=== PATIENT | female | born 1950 | race Caucasian/White ===

== ENCOUNTER 2017-06-19 11:17 | Inpatient (IN) | payer MEDICARE, BC ==
[~2017-06-19] VITALS: Ht 177.8 cm; Wt 91.1 kg
[~2017-06-19 11:17] MED LIST: ASPI-664 PO; BISA5TAB6 PO; GABA300C16 PO; LOSA100T7 PO; VIT1TABL PO
[2017-06-19] MEDS ORDERED: HYDROmorphONE 1 MG/ML SYG IV STA ×2 (11:19→12:53)
[2017-06-19] MEDS ORDERED: ONDANSETRON 4 MG INJ IV STA (11:19)
[2017-06-19 11:23] VITALS: Ht 177.8 cm; Wt 91.1 kg
--- NOTE | 2017-06-19 11:53 | ERA ---
ER Documentation Chief Complaint Date/Time DATE: 06/19/17 TIME: 11:51 Chief Complaint BIB RA FOR EVAL OF BILAT ELBOW/ARM PAIN. S/P FALL HPI This is a 67-year-old Sami female presents with family member who is interpreting. The patient just prior to arrival had a mechanical fall with outstretched hand. She tripped on a hose. She did not hit her head or lose consciousness. The patient has deformities and pain to bilateral elbows. The patient describes significant pain that is constant and certainly worse with movement. EMS was unable to obtain an IV. She denies any prodrome of chest pain or shortness of breath. ROS All systems reviewed and are negative except as per history of present illness. Medications Home Meds Active Scripts Aspirin* (Aspirin* EC) 81 Mg Tabec, 81 MG PO DAILY for 90 Days, TAB Prov:PRATEEK POWELL MD 03/15/16 Reported Medications Triamcinolone Acetonide* (Kenalog*) 0.1%-15GM Cr, 1 APPLIC TOP TID, #1 TUB 06/19/17 Ibuprofen* (Motrin*) 800 Mg Tab, 800 MG PO BID Y for PAIN, TAB 06/19/17 Amlodipine Besylate* (Amlodipine Besylate*) 10 Mg Tablet, 10 MG PO DAILY, #30 TAB 06/19/17 Clonidine Hcl* (Clonidine Hcl*) 0.1 Mg Tab, 0.1 MG PO DAILY Y for ELEVATED BLOOD PRESSURE, TAB 06/19/17 Escitalopram Oxalate* (Lexapro*) 10 Mg Tablet, 10 MG PO DAILY, #30 TAB 06/19/17 Loratadine* (Loratadine*) 10 Mg Tablet, 10 MG PO DAILY, #30 TAB 06/19/17 Esomeprazole Mag Trihydrate (Nexium) 40 Mg Capsule.dr, 40 MG PO DAILY, #30 CAP 06/19/17 Duloxetine Hcl* (Duloxetine Hcl*) 60 Mg Capsule.dr, 60 MG PO DAILY, #30 CAP 06/19/17 Gabapentin* (Gabapentin*) 300 Mg Capsule, 300 MG PO TID, #90 CAP 03/13/16 Discontinued Reported Medications Bisacodyl* (Bisacodyl*) 5 Mg Tablet.dr, 5 MG PO DAILY, TAB 03/13/16 Losartan Potassium* (Losartan Potassium*) 100 Mg Tablet, 100 MG PO DAILY, TAB 5/4/16 Discontinued Scripts Vit B12/Lmefolate Ca/Vit B6/B2 (METAFOLBIC TABLET) 1 Each Tablet, 1 EACH PO DAILY for 90 Days, TAB Prov:PRATEEK POWELL MD 03/15/16 Allergies Allergies: Coded Allergies: No Known Allergy (Unverified , 06/19/17) PMhx/Soc History of Surgery: Yes (Gallbladder surgery) Anesthesia Reaction: No Hx Neurological Disorder: No Hx Respiratory Disorders: No Hx Cardiac Disorders: Yes (HTN) Hx Psychiatric Problems: No Hx Miscellaneous Medical Probl: No Hx Alcohol Use: No Hx Substance Use: No Hx Tobacco Use: No FmHx Family History: No diabetes Physical Exam Vitals Vital Signs Date Time Temp Pulse Resp B/P Pulse Ox O2 Delivery O2 Flow Rate FiO2 06/19/17 13:18 96 16 171/121 100 Non Rebreather 06/19/17 11:23 97.3 69 19 168/117 100 06/19/17 11:19 98.4 88 22 168/117 100 Room Air Physical Exam Airway is intact Bilateral breath sounds Strong distal pulses No obvious deficits General: In pain and very uncomfortable Head: Normocephalic, atraumatic Eyes: Pupils equally reactive, EOM intact ENT: Moist mucous membranes Neck: Supple, no lymphadenopathy, No midline tenderness, deformities, step-offs to the cervical spine, full active and passive range of motion without midline pain. Respiratory: Lungs clear bilaterally, no distress, no chest wall tenderness, no crepitus Cardiovascular: RRR, no murmurs, rubs, or gallops Abdominal: Soft, non-tender, non-distended, no peritoneal signs, pelvis is stable : Deferred MSK: Limited movement of bilateral upper extremities with obvious deformity. Right upper extremity with deformity noted to the elbow. 2+ radial and ulnar pulses, soft compartments. Left upper extremity with obvious deformity possible dislocation of the left elbow. Soft compartments, 2+ radial ulnar pulses. Sensation is intact distally to bilateral upper extremities., no midline tenderness deformities or step-offs to the thoracolumbar spine Neurologic: Alert and oriented, normal speech, no focal weakness, no cerebellar signs Skin: No ecchymoses or bruising to the chest or abdomen Psych: Normal mood Result Diagram: 06/19/17 1119 06/19/17 1119 Results 24 hrs Laboratory Tests Test 06/19/17 11:19 White Blood Count 4.710^3/ul Red Blood Count 4.3810^6/ul Hemoglobin 11.8g/dl Hematocrit 34.9% Mean Corpuscular Volume 79.7fl Mean Corpuscular Hemoglobin 26.9pg Mean Corpuscular Hemoglobin Concent 33.8g/dl Red Cell Distribution Width 14.4% Platelet Count 28412^3/UL Mean Platelet Volume 11.4fl Neutrophils % 57.8% Lymphocytes % 31.8% Monocytes % 6.8% Eosinophils % 2.8% Basophils % 0.6% Nucleated Red Blood Cells % 0.0/100WBC Neutrophils # 2.710^3/ul Lymphocytes # 1.510^3/ul Monocytes # 0.310^3/ul Eosinophils # 0.110^3/ul Basophils # 0.010^3/ul Nucleated Red Blood Cells # 0.010^3/ul Prothrombin Time 12.4Sec Prothrombin Time Ratio 1.0 INR International Normalized Ratio 0.92 Activated Partial Thromboplast Time 31.7Sec Sodium Level 143mmol/L Potassium Level 4.4mmol/L Chloride Level 104mmol/L Carbon Dioxide Level 20mmol/L Anion Gap 23 Blood Urea Nitrogen 13mg/dl Creatinine 0.73mg/dl Glucose Level 121mg/dl Calcium Level 9.9mg/dl Current Medications Medications (Trade) Dose Ordered Sig/[place] Route PRN Reason Start Time Stop Time Status Last Admin Dose Admin Hydromorphone HCl (Dilaudid) 1 mg ONCE STAT IV 06/19/17 11:19 06/19/17 11:21 DC 06/19/17 11:42 Ondansetron HCl (Zofran Inj) 4 mg ONCE STAT IV 06/19/17 11:19 06/19/17 11:22 DC 06/19/17 11:42 Hydromorphone HCl (Dilaudid) 1 mg ONCE STAT IV 06/19/17 12:53 06/19/17 12:54 DC 06/19/17 12:56 Ketamine HCl (Ketalar) 50 mg ONCE STAT IV 06/19/17 12:59 06/19/17 13:02 DC 06/19/17 13:08 Propofol (Diprivan) 50 mg ONCE STAT IV 06/19/17 12:59 06/19/17 13:02 DC Ondansetron HCl (Zofran Inj) 4 mg BRIDGE ORDER PRN IV NAUSEA AND/OR VOMITING 06/19/17 14:30 06/20/17 14:29 Acetaminophen (Tylenol Tab) 650 mg ER BRIDGE PRN PO MILD PAIN/FEVER 06/19/17 14:30 06/20/17 14:29 Procedures/MDM EKG, MONITORS, & DIAGNOSTIC IMAGING: EKG: I reviewed and interpreted a 12-lead EKG. Rhythm: Normal sinus rhythm Ectopy: None Intervals: No abnormalities ST segments: No elevations or depressions T waves: No contiguous inversions Chest x-ray: I reviewed and interpreted a 1 view of the chest Mediastinum: No enlargement Cardiac silhouette: No cardiomegaly Airspace: Clear lung hunter bilaterally without evidence of pneumothorax Bones: No evidence of fracture X-ray right elbow: I reviewed and interpreted multiple views of the x-ray Bones: Distal fragment posterior dislocation of the right elbow joint with concerning abnormality that may suggest supracondylar fracture Soft tissue: No evidence of foreign body X-ray left elbow: I reviewed and interpreted multiple views of the x-ray Bones: Distal fragment posterior dislocation of the left elbow joint with possible radial head fracture Soft tissue: No evidence of foreign body X-ray right elbow: Postreduction I reviewed and interpreted multiple views of the x-ray Bones: Appropriate reduction of elbow dislocation with good alignment Soft tissue: No evidence of foreign body X-ray left elbow: Postreduction I reviewed and interpreted multiple views of the x-ray Bones: Appropriate reduction of elbow dislocation with radial head fracture Soft tissue: No evidence of foreign body PROCEDURES; Splint Application Note: Left upper extremity Splint type: Fabricated posterior mold and sling Extremity: Left upper extremity Indication: Elbow dislocation and fracture The patient was consented at bedside prior to splint application and states understanding of risks, benefits, and alternatives. The patient was neurovascularly intact prior to and status post application of the splint. The patient tolerated the procedure well and there were no complications. Splint Application Note: Right upper extremity Splint type: Posterior mold and sling Extremity: Right upper extremity Indication: Elbow dislocation and fracture The patient was consented at bedside prior to splint application and states understanding of risks, benefits, and alternatives. The patient was neurovascularly intact prior to and status post application of the splint. The patient tolerated the procedure well and there were no complications. Procedural sedation note: The patient and/or family member was consented prior to procedure and understands the risks, benefits, alternatives. A document was signed and placed in the chart. ASA class: 2 Mallampati Score: 2 N.p.o. status: Greater than 6 hours Indication: Bilateral elbow dislocation Medications: Ketamine 50 mg, Propofol 50 mg Time out was performed. Emergency airway equipment was placed to the patient's bedside. The patient was placed on supplemental oxygen. Respiratory therapy was available. The patient was placed on a tie inspector. The patient tolerated sedation well with no significant adverse events and no significant desaturations. However, the patient did have a very short and transient episode of trismus that led to slight decreased respiratory effort requiring bag valve mask for less than 2 minutes again with no desaturations or complications. The patient recovered without incident. I spent greater than 15 minutes of bedside time with this patient during sedation. Status post sedation the patient was arousable, protecting their airway, and well appearing. Closed reduction: Performed by Dr. Rothman The patient and/or family members were verbally consented for the procedure understanding the risks, benefits, alternatives. The document was signed and placed in the chart. Time out was performed. Indication: Elbow dislocation Location: Right upper extremity Technique: Traction and countertraction using fulcrum technique Neurovascular exam: The patient was neurovascularly intact distal to the injury both prior to and status post closed reduction The patient had improvement in anatomic alignment, tolerated the procedure well without complications. Closed reduction: Performed by myself The patient and/or family members were verbally consented for the procedure understanding the risks, benefits, alternatives. The document was signed and placed in the chart. Time out was performed. Indication: Elbow dislocation Location: Left upper extremity Technique: Traction and countertraction using fulcrum technique Neurovascular exam: The patient was neurovascularly intact distal to the injury both prior to and status post closed reduction The patient had improvement in anatomic alignment, tolerated the procedure well without complications. LAB INTERPRETATION: No acute process MEDICAL DECISION MAKING: The patient presents with bilateral elbow deformity is concerning for fracture, dislocation of bilateral elbows. Soft compartments, no evidence of compartment syndrome. Neurovascularly intact. Diagnostic imaging necessary. Patient may require ORIF versus procedural sedation with close fixation in the ER. Determination based on x-ray imaging. The patient will benefit from pain control, preoperative labs and imaging. No head trauma or loss of consciousness. The patient does not meet high-risk criteria and based on NEXUS cervical spine criteria there is no indication for cervical spine imaging at this time. No indication for CT imaging of the brain. ER COURSE: The patient received multiple doses of pain medication. X-ray imaging showed evidence of dislocation. There is subtle evidence of fractures. However this time the benefits of closed reduction in the emergency department outweighs the benefits. Closed reduction, immobilization and imaging as documented above. Of note, documents were signed by family member given that the patient could not write secondary to bilateral upper extremity involvement. The patient however provided verbal consent using an environmental remediation specialist. Given that the patient lives alone, the complexity of the patient's fracture dislocation and the fact that it is her bilateral upper extremities inpatient hospitalization is likely appropriate for orthopedic surgery consultation, PT OT and likely in home health care versus placement. I kept the patient and/or family informed of laboratory and diagnostic imaging results throughout the emergency room course. DISPOSITION PLAN: Medical surgical admission for management of bilateral elbow dislocation CONSULTATION: Accepting care team and consultations: I discussed the current laboratory data, diagnostic imaging and emergency care provided. Admitting team: Dr. Fofana Admitting team indication: Insurance directed Consulting services: Orthopedic surgeon Dr. Jo Departure Diagnosis: Primary Impression: Closed dislocation of left elbow Qualified Code: S53.105A - Closed dislocation of left elbow, initial encounter Additional Impressions: Closed dislocation of right elbow Qualified Code: S53.104A - Closed dislocation of right elbow, initial encounter Fracture of radial head, left, closed Qualified Code: S52.122A - Closed displaced fracture of head of left radius, initial encounter Condition: Stable INES BOURGEOIS MD Jun 19, 2017 11:53
[2017-06-19] MEDS ORDERED: ESOM40CA PO (11:54)
[2017-06-19] MEDS ORDERED: LORA10TA3 PO (11:54)
[2017-06-19] MEDS ORDERED: DULO60CA59 PO (11:54)
[2017-06-19] MEDS ORDERED: ESCI10TA PO (11:55)
[2017-06-19] MEDS ORDERED: CLON-379 PO (11:55)
[2017-06-19] MEDS ORDERED: AMLO-147 PO (11:55)
[2017-06-19] MEDS ORDERED: IBUP800T25 PO (11:56)
[2017-06-19] MEDS ORDERED: TRIA15CR55 TOP (11:57)
[2017-06-19 12:07] LABS: BASOPHILS % 0.6 % (0.0-2.0); EOSINOPHILS # 0.1 10^3/ul (0.0-0.5); EOSINOPHILS % 2.8 % (0.0-7.0); HEMATOCRIT 34.9 % (37.0-47.0); HEMOGLOBIN 11.8 g/dl (12.0-16.0); LYMPHOCYTES # 1.5 10^3/ul (0.8-2.9); LYMPHOCYTES % 31.8 % (15.0-51.0); MEAN CORPUSCULAR HEMOGLOBIN 26.9 pg (29.0-33.0); MEAN CORPUSCULAR HGB CONC 33.8 g/dl (32.0-37.0); MEAN CORPUSCULAR VOLUME 79.7 fl (82.0-101.0); MEAN PLATELET VOLUME 11.4 fl (7.4-10.4); MONOCYTE # 0.3 10^3/ul (0.3-0.9); MONOCYTES % 6.8 % (0.0-11.0); NEUTROPHIL # 2.7 10^3/ul (1.6-7.5); NEUTROPHILS % 57.8 % (39.0-77.0); PLATELET COUNT 172 10^3/UL (140-415); RED BLOOD COUNT 4.38 10^6/ul (4.20-5.40); RED CELL DISTRIBUTION WIDTH 14.4 % (11.5-14.5); WHITE BLOOD COUNT 4.7 10^3/ul (4.8-10.8)
[2017-06-19 12:22] LABS: INR 0.92; PROTIME 12.4 Sec (12.2-14.2)
[2017-06-19 12:23] LABS: PARTIAL THROMBOPLASTIN TIME 31.7 Sec (25.0-35.0)
[2017-06-19 12:26] LABS: CALCIUM 9.9 mg/dl (8.4-10.2); CREATININE 0.73 mg/dl (0.44-1.00); POTASSIUM 4.4 mmol/L (3.5-5.1)
[2017-06-19] MEDS ORDERED: PROPOFOL 200 MG INJ IV STA (12:59)
[2017-06-19] MEDS ORDERED: KETAMINE 500 MG INJ IV STA (12:59)
--- NOTE | 2017-06-19 13:20 | RADRPT ---
PROCEDURE: XR Chest. CLINICAL INDICATION: Abdominal pain. TECHNIQUE: Single frontal chest x-ray. COMPARISON: 03/13/2016 FINDINGS: The patient is rotated to the right, limiting the exam. Grossly, the lungs are clear. No focal opa cification is seen. No pneumothorax or pleural effusion is seen. The cardiomediastinal silhouette is unremarkable. The osseous structures are grossly unremarkable. IMPRESSION: No evidence of acute cardiopulmonary disease. RPTAT: JJ .Lco Sandoval MD, Date Time Electronically viewed and signed by .Loc Sandoval MD, on 06/19/2017 13:19 .A/
--- NOTE | 2017-06-19 13:27 | RADRPT ---
PROCEDURE: Elbow radiograph CLINICAL INDICATION: elbow pain s/p fall. COMPARISON: None relevant listed. TECHNIQUE: AP, lateral and oblique views of the left elbow. FINDINGS: The ulna and radius are posteriorly dislocated from the humerus by about 4.5 cm. There is a comminuted fracture of the radial head. Large joint effusion. IMPRESSION: Comminuted radial head fracture with widely dislocated elbow joint. RPTAT: PP Physician Vamsi Date Time Electronically viewed and signed by Gina Isidro Physician on 06/19/2017 13:27 LG/
--- NOTE | 2017-06-19 13:29 | RADRPT ---
PROCEDURE: Elbow radiograph CLINICAL INDICATION: elbow pain s/p fall. COMPARISON: None relevant listed. TECHNIQUE: Two views of the right elbow. FINDINGS: The radius and ulna are widely dislocated and rotated with respect to the humerus. No displaced fracture identified. IMPRESSION: The radius and ulna are widely dislocated from the humerus. RPTAT: PP Physician Vamsi Date Time Electronically viewed and signed by Gina Isidro Physician on 06/19/2017 13:29 LG/
--- NOTE | 2017-06-19 14:21 | RADRPT ---
PROCEDURE: XR Elbow. CLINICAL INDICATION: Left elbow pain TECHNIQUE: AP and lateral views of the left elbow are available for review COMPARISON: 06/19/2017 FINDINGS: There has been interval reduction of the radiocapitellar and ulnohumeral articulations in near anato haylee alignment. There is a comminuted fracture of the radial head involving the radial head articula r surface. There may be a few osseous fragments displaced laterally. An elbow joint effusion is pre sent. A posterior splint is not seen. IMPRESSION: 1. Interval reduction of the elbow joint. 2. Comminuted, intra-articular fracture of the radial head. RPTAT: [facility] .Byron Mcneal MD, MD Date Time Electronically viewed and signed by .Byron Mcneal MD, on 06/19/2017 14:21 .d/
[2017-06-19] MEDS ORDERED: ACETAMINOPHEN 325 MG TAB PO PRN ×2 (14:30)
[2017-06-19] MEDS ORDERED: ACETAMINOPHEN 650 MG SUPP PR PRN (14:30)
[2017-06-19] MEDS ORDERED: NACL 0.9% 3 ML SYG IV SCH (14:30)
[2017-06-19] MEDS ORDERED: ONDANSETRON 4 MG INJ IV PRN (14:30)
[2017-06-19 14:52] VITALS: TEMP 97.3
--- NOTE | 2017-06-19 15:04 | HP ---
Date/Time of Note Date/Time of Note DATE: 06/19/17 TIME: 14:58 Assessment/Plan VTE Prophylaxis VTE Prophylaxis Intervention: SCD's Assessment/Plan Assessment/Plan This is a 67-year-old female who was brought to the emergency room post mechanical fall and bilateral upper extremity fractures. 1. Mechanical fall with bilateral dislocation of the elbow joint. Status post reduction in ER with satisfactory alignment on right. Left with dislocated radial head. -Admit as inpatient. -Orthopedic consultation with Dr. Jo has been called from the emergency room. -Patient will be treated with pain control, immobilization of affected extremities. 2. Hypertension. -Resume home medications. -Please note that patient blood pressure initially high in the emergency room as she was in pain and this will be treated with pain medications along with her regular antihypertensives. 3. Anxiety disorders -Resume home medication DVT prophylaxis:SCDs Plan: Patient will be kept in medical surgical floor. She will be treated with adequate pain control. We will also obtain baseline labs in the morning. The rest of the management depend on clinical course, further studies and input from home service consultant. Approximately 60 minutes was spent on this history and physical. Patient was seen in collaboration with Dr. Ct SINGH/MIGNON Admit Date/Time Admit Date/Time Jun 19, 2017 at 14:04 Hx of Present Illness This is a 67-year-old female with a past medical history of hypertension, TIA, GERD, vitamin B12 deficiency, gastric bypass, anxiety disorders, who was brought to the emergency room after mechanical fall with outstretched hand while she tripped on a hose. Patient denied hitting her head. She denies any chest pain, palpitation, shortness of breath, nausea, vomiting, abdominal pain, dysuria, hematuria, upper or lower GI bleed episodes or other constitutional symptoms. Right elbow x-ray showed the radius and ulna are widely dislocated from the humerus. Left elbow with Comminuted radial head fracture with widely dislocated elbow joint. In the ER, patient had undergone left and right closed reduction followed by splint application on bilateral upper extremities. Post procedure X-ray with left elbow seemed abnormal with Comminuted, intra- articular fracture of the radial head. Patient was given adequate pain control. Orthopedic consult was called from emergency room and a clinical decision was made to admit as inpatient. Initial labs showed hemoglobin 11.8, hematocrit 34.9. Patient also had elevated blood pressure 168/117 and she was in pain. ROS A 12 point review of system was assessed and is negative other than what is mentioned in the HPI. PMH/Family/Social Past Medical History See HPI Past Surgical History See HPI Social History No history of smoking, alcohol or drug use. Exam/Review of Systems Vital Signs Vitals Vital Signs Date Time Temp Pulse Resp B/P Pulse Ox O2 Delivery O2 Flow Rate FiO2 06/19/17 13:18 96 16 171/121 100 Non Rebreather 06/19/17 11:23 97.3 Exam Exam General: Well developed,adequately built, not in any acute distress . HEENT: Normocephalic, Atraumatic, No laceration or hematoma; Eyes: PEERL, Conjunctiva clear, Anicteric sclera Neck: Supple without any lymphadenopathy, nontender, no JVD, no carotid bruits, trachea midline, no thyromegaly Cardiac: S1, S2 auscultated, regular rhythm and rate, no mumurs or gallop Pulmonary: Normal respiratory effort. Chest clear to auscultation bilaterally, no adventitious breath sounds GI: Abdomen normal to inspection. Soft, non tender, non- distended, no masses, no rebound tenderness or guarding. Bowel sounds active on all four quadrants Genitourinary: Deferred Extremities: Bilateral upper extremities are in a splint. No cyanosis, clubbing , or edema. Pulses [2+] bilaterally. Full ROM on all four extremities. No focal weakness appreciated. Neurologic: Alert to person, place, time, and situation. Affect appropriate, intact sensation. Skin: Clean,dry, and intact. No ecchymosis, no rashes, or lesions Labs Result Diagram: 06/19/17 1119 06/19/17 1119 Medications Medications Current Medications Ondansetron HCl (Zofran Inj) 4 mg Q6H PRN IV NAUSEA AND/OR VOMITING; Start 08/26 at 14:30 Acetaminophen (Tylenol Tab) 650 mg Q6H PRN PO PAIN LEVEL 1-3 OR FEVER; Start at 14:30 Acetaminophen (Tylenol Supp) 650 mg Q6H PRN NE PAIN LEVEL 1-3 OR FEVER; Start 06/19/17 at 14:30 Acetaminophen/ Hydrocodone Bitart ([place] (5/325)) 1 tab Q6H PRN PO MODERATE PAIN LEVEL 4-6; Start 06/19/17 at 14:30 Morphine Sulfate (morphine) 2 mg Q4H PRN IV SEVERE PAIN LEVEL 7-10; Start 06/19 at 14:30 Amlodipine Besylate (Norvasc) 10 mg DAILY PO ; Start 06/20/17 at 09:00 Aspirin (Halfprin) 81 mg DAILY PO ; Start 06/20/17 at 09:00 Duloxetine HCl (Cymbalta) 60 mg DAILY PO ; Start 06/20/17 at 09:00 Escitalopram Oxalate (Lexapro) 10 mg DAILY PO ; Start 06/20/17 at 09:00 Gabapentin (Neurontin) 300 mg TID PO ; Start 06/19/17 at 21:00 Loratadine (Claritin) 10 mg DAILY PO ; Start 06/20/17 at 09:00 Triamcinolone Acetonide (Kenalog 0.1% Cr) 1 applic TID TOP ; Start 06/19/17 at 21:00; Status UNV Pantoprazole (Protonix Tab) 40 mg DAILY@06 PO ; Start 06/20/17 at 06:00 MARY VIERA NP Jun 19, 2017 15:04 Pantoprazole (Protonix Tab) 40 mg DAILY@06 PO ; Start 06/20/17 at 06:00 MARY VIERA NP Jun 19, 2017 15:04
--- NOTE | 2017-06-19 15:18 | PDOCDIS ---
Discharge Instructions CONDITION Patient Condition: Stable HOME CARE INSTRUCTIONS: Diet Instructions: 2gm Na FOLLOW UP/APPOINTMENTS Follow-up Plan 1. Follow-up with outpatient orthopedics in 1-2 days. 2.Follow up with primary care physician in 1 week If you don't have one please let someone know, we can give you resources that may help you pick one. You may also call your insurance company to assign one to you. Review your medication list with your nurse before leaving and if you need new prescriptions please let your nurse know. I may have made changes to your home medications or given you new prescriptions, please let your primary doctor know as well. Stay compliant with your medications and report any side effects to your PCP or pharmacist. Return to the ER if you have any concerns and cannot reach your doctors or call your insurance company, they usually have a nurse that can help you. 3. Call 911 or go to the nearest emergency room if experiencing loss of consciousness, dizziness, chest pain, shortness of breath, vomiting/abdominal pain, speech difficulties, motor weakness or any unusual symptoms. MARY VIERA NP Jun 19, 2017 15:18
[2017-06-19] MEDS ORDERED: HYDR-906 PO (15:20)
[2017-06-19 15:29] VITALS: BP 138/67; PULSE 60; RESP 16
[2017-06-19] MEDS: HYDROCODONE/APAP (5/325) TAB PO PRN (16:07)
[2017-06-19] MEDS: morphine 2 MG INJ IV PRN ×2 (19:07→23:54)
[2017-06-19] MEDS: hydrALAzine 20 MG INJ IV PRN (19:07)
[2017-06-19 19:11] VITALS: BP 187/87; PULSE 64; RESP 24
[2017-06-19 20:00] VITALS: BP 142/66; RESP 16
[2017-06-19] MEDS: GABAPENTIN 300 MG CAP PO SCH (21:00)
[2017-06-19] MEDS: TRIAMCINOLONE ACET 0.1% 15 GM CR TOP SCH (21:00)
[2017-06-19] MEDS: ONDANSETRON 4 MG INJ IV PRN (23:55)
--- NOTE | 2017-06-20 00:34 | RADRPT ---
PROCEDURE: Noncontrast CT examination of the left elbow. CLINICAL INDICATION: Comminuted fractures of the radius with dislocation of the radius and ulna. TECHNIQUE: Noncontrast CT examination of the left elbow, with axial, sagittal and coronal reformat peter images. Retained post process surface rendered volume images were obtained over the left elbow. CTDI: 50.26 and DLP: 1212.52 COMPARISON: Plain film left elbow dated 06/19/2017. FINDINGS: Comminuted displaced fracture of the radial head and neck. The largest displaced radial head fragme nt measures about 10 mm. Disarticulation of the radiohumeral joint with lateral and dorsal subluxati on of the radius on the distal humerus. The radial head is subluxed laterally and dorsally, and disl ocation measures up to about 2 cm. Disarticulation of the ulnohumeral joint with dorsal subluxation of the olecranon on the distal andre alejandra. The olecranon is subluxed laterally and dorsally, and dislocation measures up to about 2 cm. Th e coronoid process has a chip fracture, and the fracture fragment is located anterior to the distal humerus. Small bone chips are seen within the joint compartment. Small bone chips are seen over the proximal aspect of the of the medial and central capitellum There is a joint effusion. There is a soft tissue injury at the dorsal medial elbow with 2 small ra diopaque possible foreign bodies within the soft tissues. Differential considerations include bone fracture chips. There is no evident fracture of the distal humerus. IMPRESSION: 1. Comminuted displaced fracture of the radial head and neck. 2. Disarticulation of the radius and ulna. 3. Small chip fracture at the coronoid process of the ulna. 4. Numerous bone fragments seen throughout the joint region. 5. Soft disruption over the dorsal aspect of the elbow with possible retained radiopaque foreign eliane dies versus displaced bone fracture chips. RPTAT: [facility] Physician Oswaldo Date Time Electronically viewed and signed by Physician Oswaldo on 06/20/2017 00:33 RS/
[2017-06-20] MEDS: HYDROCODONE/APAP (5/325) TAB PO PRN ×3 (01:10→17:50)
[2017-06-20 02:32] VITALS: BP 132/64; RESP 16
--- NOTE | 2017-06-20 03:42 | CONS ---
DATE OF ADMISSION: 06/19/2017 DATE OF CONSULTATION: 06/19/2017 TYPE OF CONSULTATION: Orthopedic Surgery HISTORY OF PRESENT ILLNESS: The patient is a 67-year-old female, who was admitted on 06/19/2017 when she came to the Emergency Room complaining of painful swelling and limit of motion involving both elbows. According to available information, she obviously had a trip and fall on the day of her admission and while she was trying to break her fall with both outstretched hands, she developed this painful swelling and limit of motion involving her left elbow. She was found to have a bilateral elbow dislocation and this was reduced in the Emergency Room and her elbow was immobilized in a long-arm posterior splint bilaterally. PHYSICAL EXAMINATION: My examination revealed a 67-year-old female who was not in any acute distress. There was no evidence of any acute neurovascular compromise involving both hands. The elbow itself could not be examined properly at this time because of the splint. DIAGNOSTIC DATA: X-rays of both elbows, both preop and postop x- rays were reviewed. The alignment of the elbow joint on the right side was satisfactory. The alignment of the left elbow, postreduction, seems to be somewhat abnormal with the position of the radial head seems to be out of the joint. DIAGNOSTIC IMPRESSION: Traumatic dislocation of the elbow joint, bilateral. PLAN: CT scan of the left elbow in order to clarify the position of the left elbow joint. If the alignment is less than ideal acceptable, then repeated manipulation to improve the alignment may be necessary. Dictated By: In Kristal Jo MD /alee/gen /Document#: [id number]
[2017-06-20] MEDS: PANTOPRAZOLE (EC) 40 MG TAB PO SCH (05:20)
[2017-06-20] MEDS: morphine 2 MG INJ IV PRN (06:11)
[2017-06-20 06:40] LABS: BASOPHILS % 0.3 % (0.0-2.0); EOSINOPHILS # 0.1 10^3/ul (0.0-0.5); HEMATOCRIT 32.9 % (37.0-47.0); HEMOGLOBIN 10.8 g/dl (12.0-16.0); LYMPHOCYTES % 15.6 % (15.0-51.0); MEAN CORPUSCULAR HEMOGLOBIN 26.2 pg (29.0-33.0); MEAN CORPUSCULAR HGB CONC 32.8 g/dl (32.0-37.0); MEAN CORPUSCULAR VOLUME 79.9 fl (82.0-101.0); MEAN PLATELET VOLUME 11.4 fl (7.4-10.4); MONOCYTE # 0.6 10^3/ul (0.3-0.9); MONOCYTES % 9.2 % (0.0-11.0); NEUTROPHIL # 4.5 10^3/ul (1.6-7.5); NEUTROPHILS % 73.6 % (39.0-77.0); PLATELET COUNT 192 10^3/UL (140-415); RED BLOOD COUNT 4.12 10^6/ul (4.20-5.40); RED CELL DISTRIBUTION WIDTH 14.8 % (11.5-14.5); WHITE BLOOD COUNT 6.2 10^3/ul (4.8-10.8)
[2017-06-20 07:18] LABS: ALBUMIN/GLOBULIN RATIO 1.14; BILIRUBIN,INDIRECT 0.4 mg/dl (0-1.1); BILIRUBIN,TOTAL 0.4 mg/dl (0.2-1.3); CALCIUM 9.5 mg/dl (8.4-10.2); CHOL/HDL RATIO 3.4 RATIO; CREATININE 0.6 mg/dl (0.44-1.00); MAGNESIUM 1.8 mg/dl (1.7-2.5); PHOSPHORUS 4.6 mg/dl (2.5-4.9); POTASSIUM 4.2 mmol/L (3.5-5.1); TOTAL PROTEIN 7.5 g/dl (6.1-8.1)
[2017-06-20 07:42] LABS: THYROID STIMULATING HORMONE 2.36 MIU/L (0.465-4.680)
[2017-06-20 08:05] VITALS: BP 142/76; RESP 18
[2017-06-20] MEDS ORDERED: morphine 4 MG/ML VIAL IV PRN (09:00)
[2017-06-20] MEDS: TRIAMCINOLONE ACET 0.1% 15 GM CR TOP SCH ×3 (09:00→20:20)
[2017-06-20] MEDS: ASPIRIN (EC) 81 MG TAB PO SCH (09:00)
--- NOTE | 2017-06-20 09:36 | PN ---
Date/Time of Note Date/Time of Note DATE: 06/20/17 TIME: 09:35 Assessment/Plan VTE Prophylaxis VTE Prophylaxis Intervention: SCD's Lines/Catheters IV Catheter Type (from Nrs): Saline Lock Assessment/Plan Chief Complaint/Hosp Course 1. Mechanical fall with bilateral dislocation of the elbow joint. Status post reduction in ER with satisfactory alignment on right. Left with dislocated radial head. -Orthopedic eval appreciated.CT left upper extremity has been ordered for further eval and treatment option. -Continue with pain control, immobilization of affected extremities. 2. Hypertension.Stable -Continue home antihypertensives 3. Anxiety disorders.Stable -Continue home medication 4.Transaminase elevation. Asymptomatic -Obtain RUQ US DVT prophylaxis:SCDs Plan: F/u with CT findings and orthopedic recs . As per recommendation,if CT with satisfactory alignment of left elbow, will continue with pain management and outpatient f/u-Otherwise,patient needs inpatient stay for further manipulation vs surgical approach. In any case, If orthopedic intervention is indicated, given patient's medical condition, patient is at a low to intermediate risk for any untoward medical events for surgery and anesthesia. However, benefit likely outweigh risks and recommended to have surgical intervention if indicated by orthopedics team. Patient was seen in collaboration with Dr. Fofana Problems: Subjective 24 Hr Interval Summary Free Text/Dictation Ptaient with pain. Had orthopedic eval. CT performed to reevaluate left elbow status. Exam/Review of Systems Vital Signs Vitals Vital Signs Date Time Temp Pulse Resp B/P Pulse Ox O2 Delivery O2 Flow Rate FiO2 06/20/17 08:05 98.1 67 18 142/76 95 06/19/17 19:11 Room Air 06/19/17 14:52 2.0 Exam General: Well developed,adequately built, not in any acute distress . HEENT: Normocephalic, Atraumatic, No laceration or hematoma; Eyes: PEERL, Conjunctiva clear, Anicteric sclera Neck: Supple without any lymphadenopathy, nontender, no JVD, no carotid bruits, trachea midline, no thyromegaly Cardiac: S1, S2 auscultated, regular rhythm and rate, no mumurs or gallop Pulmonary: Normal respiratory effort. Chest clear to auscultation bilaterally, no adventitious breath sounds GI: Abdomen normal to inspection. Soft, non tender, non- distended, no masses, no rebound tenderness or guarding. Bowel sounds active on all four quadrants Genitourinary: Deferred Extremities: Bilateral upper extremities are in a splint. No cyanosis, clubbing , or edema. Pulses [2+] bilaterally. Full ROM on all four extremities. No focal weakness appreciated. Neurologic: Alert to person, place, time, and situation. Affect appropriate, intact sensation. Skin: Clean,dry, and intact. No ecchymosis, no rashes, or lesions Results Result Diagram: 06/20/17 0541 06/20/17 0541 Results 24 hrs Laboratory Tests Test 06/19/17 11:19 06/20/17 05:41 White Blood Count 4.7 L 6.2 # Red Blood Count 4.38 4.12 L Hemoglobin 11.8 L 10.8 L Hematocrit 34.9 L 32.9 L Mean Corpuscular Volume 79.7 L 79.9 L Mean Corpuscular Hemoglobin 26.9 L 26.2 L Mean Corpuscular Hemoglobin Concent 33.8 32.8 Red Cell Distribution Width 14.4 14.8 H Platelet Count 172 192 Mean Platelet Volume 11.4 #H 11.4 H Neutrophils % 57.8 73.6 Lymphocytes % 31.8 15.6 Monocytes % 6.8 9.2 Eosinophils % 2.8 1.0 Basophils % 0.6 0.3 Nucleated Red Blood Cells % 0.0 0.0 Neutrophils # 2.7 4.5 Lymphocytes # 1.5 1.0 Monocytes # 0.3 0.6 Eosinophils # 0.1 0.1 Basophils # 0.0 0.0 Nucleated Red Blood Cells # 0.0 0.0 Prothrombin Time 12.4 Prothrombin Time Ratio 1.0 INR International Normalized Ratio 0.92 Activated Partial Thromboplast Time 31.7 Sodium Level 143 140 Potassium Level 4.4 4.2 Chloride Level 104 100 Carbon Dioxide Level 20 L 26 Anion Gap 23 H 18 H Blood Urea Nitrogen 13 17 Creatinine 0.73 0.60 Glucose Level 121 88 Calcium Level 9.9 9.5 Hemoglobin A1c 5.9 Phosphorus Level 4.6 Magnesium Level 1.8 Total Bilirubin 0.4 Direct Bilirubin 0.00 Indirect Bilirubin 0.4 Aspartate Amino Transf (AST/SGOT) 102 H Alanine Aminotransferase (ALT/SGPT) 112 H Alkaline Phosphatase 166 H Total Protein 7.5 Albumin 4.0 Globulin 3.50 H Albumin/Globulin Ratio 1.14 Triglycerides Level 149 Cholesterol Level 187 LDL Cholesterol, Calculated 103 HDL Cholesterol 54 Cholesterol/HDL Ratio 3.4 Thyroid Stimulating Hormone (TSH) 2.360 Medications Medications Current Medications Ondansetron HCl (Zofran Inj) 4 mg Q6H PRN IV NAUSEA AND/OR VOMITING Last administered on 06/19/17 23:55; Admin Dose 4 MG; Start 06/19/17 at 14:30 Acetaminophen (Tylenol Tab) 650 mg Q6H PRN PO PAIN LEVEL 1-3 OR FEVER; Start at 14:30 Acetaminophen (Tylenol Supp) 650 mg Q6H PRN [place] PAIN LEVEL 1-3 OR FEVER; Start 06/19/17 at 14:30 Acetaminophen/ Hydrocodone Bitart ([place] (5/325)) 1 tab Q6H PRN PO MODERATE PAIN LEVEL 4-6 Last administered on 06/20/17 07:44; Admin Dose 1 TAB; Start 08/26 at 14:30 Amlodipine Besylate (Norvasc) 10 mg DAILY PO ; Start 06/20/17 at 09:00 Aspirin (Halfprin) 81 mg DAILY PO ; Start 06/20/17 at 09:00 Duloxetine HCl (Cymbalta) 60 mg DAILY PO ; Start 06/20/17 at 09:00 Escitalopram Oxalate (Lexapro) 10 mg DAILY PO ; Start 06/20/17 at 09:00 Gabapentin (Neurontin) 300 mg TID PO ; Start 06/19/17 at 21:00 Loratadine (Claritin) 10 mg DAILY PO ; Start 06/20/17 at 09:00 Triamcinolone Acetonide (Kenalog 0.1% Cr) 1 applic TID TOP ; Start 06/19/17 at 21:00 Pantoprazole (Protonix Tab) 40 mg DAILY@06 PO ; Start 06/20/17 at 06:00 Hydralazine HCl (Apresoline) 10 mg Q6H PRN IV SBP>160 Last administered on 06/19 19:07; Admin Dose 10 MG; Start 06/19/17 at 15:00 Morphine Sulfate (morphine) 3 mg Q3H PRN IV SEVERE PAIN LEVEL 7-10; Start 06/20 at 09:00 MARY VIERA NP Jun 20, 2017 09:36
--- NOTE | 2017-06-20 10:46 | RADRPT ---
PROCEDURE: US Abdomen. CLINICAL INDICATION: abdominal pain TECHNIQUE: Multiple real-time images were acquired of the patient's right upper quadrant abdomen a nd retroperitoneum utilizing a high resolution transducer. COMPARISON: None FINDINGS: The study is very limited due to overlying bowel gas and patient's body habitus. The pancreas is no t seen. The common bile duct is not visualized. The liver is only partially visualized. The liver demonstrates normal echogenicity. The liver is normal in size and no focal solid lesions are seen. The liver measures 17 cm in length. No intrahepatic biliary dilatation is seen. The patient is status post cholecystectomy. No free fluid is identified. The right kidney is normal in size, and demonstrate normal echogenicity and cortical thickness. The right kidney measures 10.9 cm in long dimension. There is no evidence of hydronephrosis. There are no kidney stones. RPTAT: AA IMPRESSION: Limited study due to overlying bowel gas. Status post cholecystectomy. No evidence of hydronephrosis. Pancreas and CBD were not visualized. .Carmelo Elise MD, MD Date Time Electronically viewed and signed by .Carmelo Elise MD, on 06/20/2017 10:46 .S/
[2017-06-20] MEDS: KETOROLAC 15 MG INJ IV PRN ×2 (13:00→23:34)
[2017-06-20] MEDS: GABAPENTIN 300 MG CAP PO SCH ×3 (13:00→22:25)
[2017-06-20 14:26] VITALS: BP 123/61; RESP 18
[2017-06-20] MEDS: LORATADINE 10 MG TAB PO SCH (17:49)
[2017-06-20] MEDS: ESCITALOPRAM 10 MG TAB PO SCH (17:49)
[2017-06-20] MEDS: DULOXETINE 30 MG CAP DR PO SCH (17:49)
[2017-06-20] MEDS: AMLODIPINE 10 MG TAB PO SCH (17:50)
[2017-06-20] MEDS: ONDANSETRON 4 MG INJ IV PRN ×2 (19:00→23:35)
[2017-06-20 20:00] VITALS: BP 176/82; RESP 18
[2017-06-20] MEDS: hydrALAzine 20 MG INJ IV PRN (20:22)
[2017-06-20 21:33] VITALS: BP 144/72
[2017-06-21] VITALS (18 sets, daily range): BP systolic 130–150; BP diastolic 62–81; PULSE 66–88; RESP 18–32
[2017-06-21] MEDS: PANTOPRAZOLE (EC) 40 MG TAB PO SCH (06:00)
[2017-06-21 07:53] LABS: BASOPHILS % 0.2 % (0.0-2.0); EOSINOPHILS % 0.3 % (0.0-7.0); HEMATOCRIT 34.6 % (37.0-47.0); HEMOGLOBIN 11.4 g/dl (12.0-16.0); LYMPHOCYTES % 17.1 % (15.0-51.0); MEAN CORPUSCULAR HEMOGLOBIN 26.1 pg (29.0-33.0); MEAN CORPUSCULAR HGB CONC 32.9 g/dl (32.0-37.0); MEAN CORPUSCULAR VOLUME 79.4 fl (82.0-101.0); MEAN PLATELET VOLUME 10.6 fl (7.4-10.4); MONOCYTE # 0.4 10^3/ul (0.3-0.9); MONOCYTES % 7.2 % (0.0-11.0); NEUTROPHIL # 4.6 10^3/ul (1.6-7.5); NEUTROPHILS % 74.9 % (39.0-77.0); PLATELET COUNT 202 10^3/UL (140-415); RED BLOOD COUNT 4.36 10^6/ul (4.20-5.40); RED CELL DISTRIBUTION WIDTH 14.7 % (11.5-14.5); WHITE BLOOD COUNT 6.1 10^3/ul (4.8-10.8)
[2017-06-21 08:08] LABS: CALCIUM 9.6 mg/dl (8.4-10.2); CREATININE 0.62 mg/dl (0.44-1.00)
[2017-06-21] MEDS: LORATADINE 10 MG TAB PO SCH (08:21)
[2017-06-21] MEDS: DULOXETINE 30 MG CAP DR PO SCH (08:21)
[2017-06-21] MEDS: AMLODIPINE 10 MG TAB PO SCH (08:25)
[2017-06-21] MEDS: ASPIRIN (EC) 81 MG TAB PO SCH (08:25)
[2017-06-21] MEDS: ESCITALOPRAM 10 MG TAB PO SCH (08:25)
[2017-06-21] MEDS: TRIAMCINOLONE ACET 0.1% 15 GM CR TOP SCH ×3 (08:25→23:17)
[2017-06-21] MEDS: GABAPENTIN 300 MG CAP PO SCH ×3 (08:25→21:44)
[2017-06-21] MEDS: KETOROLAC 15 MG INJ IV PRN (10:25)
[2017-06-21] MEDS ORDERED: FENTAnyl 50 MCG/ML VIAL ONE (12:37)
[2017-06-21] MEDS ORDERED: MIDAZOLAM 1 MG/ML 2 ML INJ ONE (12:37)
[2017-06-21] MEDS ORDERED: CEFAZOLIN 1 GM INJ ONE (12:37)
[2017-06-21] MEDS ORDERED: PROPOFOL 20 ML ONE (12:37)
--- NOTE | 2017-06-21 12:48 | HPN ---
Date/Time of Note Date/Time of Note DATE: 06/21/17 TIME: 12:48 Interval H&P Admission Note Pt. seen H&P reviewed: No system changes PHILL CARTAGENA MD Jun 21, 2017 12:48
[2017-06-21] MEDS ORDERED: PHENYLephrine (100 MCG/ML) 5ML SYG ONE ×2 (13:10→13:29)
--- NOTE | 2017-06-21 13:40 | PN ---
Date/Time of Note Date/Time of Note DATE: 06/21/17 TIME: 13:38 Assessment/Plan VTE Prophylaxis VTE Prophylaxis Intervention: LMWH Lines/Catheters IV [facility] Saline Lock Assessment/Plan Chief Complaint/Hosp Course Chief Complaint/Hosp Course 1. Mechanical fall with bilateral dislocation of the elbow joint. Status post reduction in ER with satisfactory alignment on right. Left with dislocated radial head. Recommendations: Further imaging today. -Continue with pain control, immobilization of affected extremities. 2. Hypertension.Stable -Continue home antihypertensives 3. Anxiety disorders.Stable -Continue home medication 4.Transaminase elevation. Asymptomatic -Ultrasound abdomen is grossly unremarkable DVT prophylaxis low molecular weight heparin Await further imaging and orthopedic recommendations. Problems: Subjective 24 Hr Interval Summary Free Text/Dictation No significant changes, still has moderate pain in both elbows. Exam/Review of Systems Vital Signs Vitals Vital Signs Date Time Temp Pulse Resp B/P Pulse Ox O2 Delivery O2 Flow Rate FiO2 06/21/17 08:00 98.0 75 18 145/81 92 06/19/17 19:11 Room Air 06/19/17 14:52 2.0 Intake and Output 06/20/17 06/20/17 06/21/17 15:00 23:00 07:00 Intake Total 320 ml 100 ml Balance 320 ml 100 ml Exam GENERAL: Elderly lady appears comfortable at rest. VITAL SIGNS: per chart NECK: Supple. No JVD or lymphadenopathy. CARDIAC EXAM: S1, S2. No added sounds or murmurs. CHEST: clear bilaterally, No added sounds, rales or wheezes ABDOMEN: Soft, nontender. No guarding or rebound. EXTREMITIES: No cyanosis, clubbing or edema. NEUROLOGIC: Generalized weakness. No focal deficits. Results Result Diagram: 06/21/17 0733 06/21/17 0733 Results 24 hrs Laboratory Tests Test 06/20/17 19:04 06/21/17 07:33 Bedside Glucose 101 White Blood Count 6.1 Red Blood Count 4.36 Hemoglobin 11.4 L Hematocrit 34.6 L Mean Corpuscular Volume 79.4 L Mean Corpuscular Hemoglobin 26.1 L Mean Corpuscular Hemoglobin Concent 32.9 Red Cell Distribution Width 14.7 H Platelet Count 202 Mean Platelet Volume 10.6 H Neutrophils % 74.9 Lymphocytes % 17.1 Monocytes % 7.2 Eosinophils % 0.3 Basophils % 0.2 Nucleated Red Blood Cells % 0.0 Neutrophils # 4.6 Lymphocytes # 1.0 Monocytes # 0.4 Eosinophils # 0.0 Basophils # 0.0 Nucleated Red Blood Cells # 0.0 Sodium Level 136 Potassium Level 4.0 Chloride Level 102 Carbon Dioxide Level 25 Anion Gap 13 Blood Urea Nitrogen 23 H Creatinine 0.62 Glucose Level 103 Calcium Level 9.6 Medications Medications Current Medications Ondansetron HCl (Zofran Inj) 4 mg Q6H PRN IV NAUSEA AND/OR VOMITING Last administered on 06/20/17 23:35; Admin Dose 4 MG; Start 06/19/17 at 14:30 Acetaminophen (Tylenol Tab) 650 mg Q6H PRN PO PAIN LEVEL 1-3 OR FEVER; Start at 14:30 Acetaminophen (Tylenol Supp) 650 mg Q6H PRN [place] PAIN LEVEL 1-3 OR FEVER; Start 06/19/17 at 14:30 Acetaminophen/ Hydrocodone Bitart ([place] (5/325)) 1 tab Q6H PRN PO MODERATE PAIN LEVEL 4-6 Last administered on 06/20/17 17:50; Admin Dose 1 TAB; Start 08/26 at 14:30 Amlodipine Besylate (Norvasc) 10 mg DAILY PO Last administered on 06/20/17 17: 50; Admin Dose 10 MG; Start 06/20/17 at 09:00 Aspirin (Halfprin) 81 mg DAILY PO ; Start 06/20/17 at 09:00 Duloxetine HCl (Cymbalta) 60 mg DAILY PO Last administered on 06/20/17 17:49; Admin Dose 60 MG; Start 06/20/17 at 09:00 Escitalopram Oxalate (Lexapro) 10 mg DAILY PO Last administered on 06/20/17 17 :49; Admin Dose 10 MG; Start 06/20/17 at 09:00 Gabapentin (Neurontin) 300 mg TID PO Last administered on 06/20/17 22:25; Admin Dose 300 MG; Start 06/19/17 at 21:00 Loratadine (Claritin) 10 mg DAILY PO Last administered on 06/20/17 17:49; Admin Dose 10 MG; Start 06/20/17 at 09:00 Triamcinolone Acetonide (Kenalog 0.1% Cr) 1 applic TID TOP ; Start 06/19/17 at 21:00 Pantoprazole (Protonix Tab) 40 mg DAILY@06 PO ; Start 06/20/17 at 06:00 Hydralazine HCl (Apresoline) 10 mg Q6H PRN IV SBP>160 Last administered on 06/20 20:22; Admin Dose 10 MG; Start 06/19/17 at 15:00 Ketorolac Tromethamine (Toradol) 15 mg Q6H PRN IV PAIN Last administered on 10:25; Admin Dose 15 MG; Start 06/20/17 at 09:30; Stop 06/23/17 at 09:29 RODRIGUEZ BAE MD, [facility] Jun 21, 2017 13:40
[2017-06-21] MEDS ORDERED: ONDANSETRON 4 MG INJ ONE (13:44)
[2017-06-21] MEDS ORDERED: DEXAMETHASONE 4 MG/ML 1 ML INJ ONE (13:45)
[2017-06-21] MEDS ORDERED: KETOROLAC 30 MG INJ ONE (13:45)
[2017-06-21] MEDS ORDERED: METOCLOPRAMIDE 10 MG INJ ONE (13:45)
[2017-06-21] MEDS ORDERED: NACL 0.9% 3 ML SYG IV SCH (14:00)
[2017-06-21] MEDS ORDERED: MEPERIDINE 25 MG INJ IV PRN (14:00)
[2017-06-21] MEDS ORDERED: LABETALOL HCL 20MG INJ IV PRN (14:00)
[2017-06-21] MEDS ORDERED: hydrALAzine 20 MG INJ IV PRN (14:00)
[2017-06-21] MEDS ORDERED: HYDROCODONE/APAP (5/325) TAB PO PRN (14:00)
[2017-06-21] MEDS ORDERED: morphine (1 MG/ML) 10ML SYRINGE IV PRN ×2 (14:00)
[2017-06-21] MEDS ORDERED: morphine 2 MG INJ IV PRN (14:00)
[2017-06-21] MEDS ORDERED: ALBUMIN HUMAN 5% 250 ML IV PRN (14:00)
[2017-06-21] MEDS ORDERED: DIPHENHYDRAMINE 50 MG INJ IV PRN (14:00)
[2017-06-21] MEDS ORDERED: ONDANSETRON 4 MG INJ IV PRN (14:00)
[2017-06-21] MEDS ORDERED: EPHEDrine SULFATE 50 MG/5 ML SYG IV PRN (14:00)
[2017-06-21] MEDS ORDERED: HYDROmorphONE (0.2 MG/ML) 10ML SYG IV PRN ×3 (14:00)
[2017-06-21] MEDS ORDERED: OXYCODONE/ACETAMINOPHEN (5/325) TAB PO PRN ×2 (14:00)
[2017-06-21] MEDS ORDERED: METOCLOPRAMIDE 10 MG INJ IV PRN (14:00)
[2017-06-21] MEDS ORDERED: FENTAnyl 50 MCG/ML VIAL IV PRN ×3 (14:00)
--- NOTE | 2017-06-21 14:12 | OPR ---
Date/Time of Note Date/Time of Note DATE: 06/21/17 TIME: 14:06 Operative Report Free Text/Dictation fracture-dislocation of Lt. elbow Preoperative Diagnosis fracture dislocation of Lt. elbow Postoperative Diagnosis same as preop Operation/Procedure Performed closed reduction under general anesthesia Surgeon: PHILL CARTAGENA MD Anesthesia Type: general Estimated Blood Loss: none Transfusion Required: no Grafts/Implants: none Complications: no PHILL CARTAGENA MD Jun 21, 2017 14:12
--- NOTE | 2017-06-21 17:38 | RADRPT ---
PROCEDURE: XR Elbow. CLINICAL INDICATION: 67-year-old man. Postop elbow fracture dislocation.. TECHNIQUE: 2 views of the left elbow. COMPARISON: Intraoperative radiographs June 21, 2017 and multiple priors FINDINGS: Imaging was performed through a cast or splint that obscures fine bony detail. Alignment is grossly anatomic on frontal and oblique views obtained portably. There are acute comminuted fractures of t he proximal radius and ulna that are better evaluated on prior imaging. There is soft tissue swelli ng. IMPRESSION: Status post reduction fracture dislocation of the elbow. Alignment appears grossly anatomic on thes e limited views.. RPTAT: HCTS Physician Gaby Date Time Electronically viewed and signed by Physician Gaby on 06/21/2017 17:38 /
--- NOTE | 2017-06-21 17:40 | RADRPT ---
PROCEDURE: XR Elbow. CLINICAL INDICATION: 67-year-old female. Closed reduction left elbow. TECHNIQUE: 2 views of the left elbow. COMPARISON: June 21, 2017 and multiple priors FINDINGS: Intraoperative radiographs of the left elbow are provided. There is widening of the radiocapitellar and humeral ulnar joints. Alignment is grossly anatomic in the frontal and oblique lateral project ions. Comminuted fractures of the proximal radius and ulna are again visualized. Evaluation of bony detail is limited. IMPRESSION: Intraoperative radiographs documenting reduction of fracture dislocation of the elbow with widened j oint space.. RPTAT: HCTS Physician Gaby Date Time Electronically viewed and signed by Physician Gaby on 06/21/2017 17:40 CS/
--- NOTE | 2017-06-21 17:44 | RADRPT ---
PROCEDURE: Intraoperative fluoroscopy CLINICAL INDICATION: Right elbow recast TECHNIQUE: 4 fluoroscopic images of the right elbow were obtained by the operating surgeon. Total fluoroscopic time: 8.1 seconds. COMPARISON: Plain radiographs June 19, 2017 FINDINGS: There has been anatomic reduction of previously identified elbow dislocation on the frontal and late ral views that are provided. The joint space appears widened. Evaluation of bone detail is limited . Cumulative dose 0.33 mGy. IMPRESSION: Intraoperative fluoroscopy, as described. RPTAT: HTAR Physician Gaby Date Time Electronically viewed and signed by Physician Gaby on 06/21/2017 17:44 CS/
[2017-06-21] MEDS: D5W-0.45 NACL + KCL 20 MEQ 1,000 ML IV SCH (17:51)
[2017-06-21] MEDS: ENOXAPARIN 30 MG/0.3 ML SYG SC SCH (17:52)
[2017-06-21] MEDS: ONDANSETRON 4 MG INJ IV PRN (18:09)
[2017-06-21] MEDS: HYDROCODONE/APAP (5/325) TAB PO PRN (18:09)
--- NOTE | 2017-06-21 18:32 | OPR ---
DATE OF OPERATION: 06/21/2017 PREOPERATIVE DIAGNOSIS: Fracture dislocation of the left elbow. POSTOPERATIVE DIAGNOSIS: Fracture dislocation of the left elbow. PROCEDURE: Closed reduction of the fracture dislocation of the left elbow under general anesthesia and immobilization in a long arm posterior splint. ANESTHESIA: General anesthesia. SURGEON: Dr. Binh Jo. PROCEDURE AND FINDINGS: Under general anesthesia, the patient was placed in supine position upon the operating table. First the already reduced right elbow was examined under fluoroscopic examination and was found to be acceptable and new posterior splint was applied. Attention was then directed to the left elbow, examination under fluoroscope again revealed that there is a fracture dislocation, which was not reduced completely. The preexisting posterior splint was removed and closed reduction was carried out by applying gentle distal axial traction while the elbow is being bent. Following a typical clunking sensation that elbow joint was reduced. A fluoroscopic examination of the left elbow revealed that the fracture is in acceptable alignment. The elbow joint was in acceptable alignment. It was also noted that there is a fracture involving the radial head. With the elbow in the bent and externally rotated position the entire left upper extremity was immobilized in a long arm posterior splint. The repeated fluoroscopy examination in a splint revealed that the elbow joint to be in an acceptable alignment. The patient tolerated the entire procedure very well and was sent to the recovery room in excellent condition. Dictated By: In Kristal Jo MD /alee/william /Document#: [id number]
[2017-06-22 02:00] VITALS: BP 150/71; RESP 18
[2017-06-22] MEDS: D5W-0.45 NACL + KCL 20 MEQ 1,000 ML IV SCH (03:59)
[2017-06-22] MEDS: PANTOPRAZOLE (EC) 40 MG TAB PO SCH (05:35)
[2017-06-22 06:38] LABS: BASOPHILS % 0.2 % (0.0-2.0); EOSINOPHILS % 0.2 % (0.0-7.0); HEMATOCRIT 32.5 % (37.0-47.0); HEMOGLOBIN 10.6 g/dl (12.0-16.0); LYMPHOCYTES # 0.8 10^3/ul (0.8-2.9); LYMPHOCYTES % 13.1 % (15.0-51.0); MEAN CORPUSCULAR HEMOGLOBIN 26.1 pg (29.0-33.0); MEAN CORPUSCULAR HGB CONC 32.6 g/dl (32.0-37.0); MEAN PLATELET VOLUME 10.9 fl (7.4-10.4); MONOCYTE # 0.5 10^3/ul (0.3-0.9); MONOCYTES % 7.3 % (0.0-11.0); PLATELET COUNT 215 10^3/UL (140-415); RED BLOOD COUNT 4.06 10^6/ul (4.20-5.40); RED CELL DISTRIBUTION WIDTH 14.5 % (11.5-14.5); WHITE BLOOD COUNT 6.3 10^3/ul (4.8-10.8)
[2017-06-22 07:12] LABS: CALCIUM 9.1 mg/dl (8.4-10.2); CREATININE 0.66 mg/dl (0.44-1.00); MAGNESIUM 2.1 mg/dl (1.7-2.5); PHOSPHORUS 3.2 mg/dl (2.5-4.9); POTASSIUM 4.4 mmol/L (3.5-5.1)
[2017-06-22] MEDS: GABAPENTIN 300 MG CAP PO SCH (08:52)
[2017-06-22] MEDS: ASPIRIN (EC) 81 MG TAB PO SCH (08:52)
[2017-06-22] MEDS: ESCITALOPRAM 10 MG TAB PO SCH (08:52)
[2017-06-22] MEDS: AMLODIPINE 10 MG TAB PO SCH (08:52)
[2017-06-22] MEDS: LORATADINE 10 MG TAB PO SCH (08:52)
[2017-06-22] MEDS: DULOXETINE 30 MG CAP DR PO SCH (08:52)
[2017-06-22] MEDS: TRIAMCINOLONE ACET 0.1% 15 GM CR TOP SCH (08:53)
[2017-06-22] MEDS ORDERED: ENOXAPARIN 40 MG/0.4 ML SYG SC SCH (09:00)
[2017-06-22] MEDS: ENOXAPARIN 30 MG/0.3 ML SYG SC SCH (09:07)
[2017-06-22 09:08] VITALS: BP 160/76; RESP 16
[2017-06-22] MEDS ORDERED: TRAM-40 PO (10:08)
--- NOTE | 2017-06-22 10:26 | DS ---
Date/Time of Note Date/Time of Note DATE: 06/22/17 TIME: :17 Discharge Summary Admission/Discharge Info Admit Date/Time Jun 19, 2017 at 14:04 Discharge Date/Time Discharge Diagnosis 1. Mechanical fall with bilateral dislocation of the elbow joint. Status post reduction in ER followed by closed reduction of the fracture dislocation of the left elbow 2. Hypertension. 3. Anxiety disorders.Stable Patient Condition: Stable Consults Dr. Jo, orthopedic Procedures : Closed reduction of the fracture dislocation of the left elbow under general anesthesia and immobilization in a long arm posterior splint. Hx of Present Illness Hospital Course This is a 67-year-old female with a past medical history of hypertension, TIA, GERD, vitamin B12 deficiency, gastric bypass, anxiety disorders, who was brought to the emergency room after mechanical fall with outstretched hand while she tripped on a hose. She was found to have a bilateral elbow dislocation and this was reduced in the Emergency Room and was immobilized in splint bilaterally. There was no evidence of any acute neurovascular compromise involving both hands. The alignment of the elbow joint on the right side was satisfactory postreduction. However, the patient was admitted for further orthopedic evaluation as her repeat x-ray with the alignment of the left elbow postreduction was somewhat abnormal with the position of the radial head seems to be out of the joint. Patient was continued on pain control. On 06/21/2017, patient had undergone closed reduction of the fracture dislocation of the left elbow under general anesthesia and immobilization in a long arm posterior splint. The patient tolerated the entire procedure very well. The repeated fluoroscopy examination in a splint revealed that the elbow joint to be in an acceptable alignment. Patient was resumed on diet and activities which she was tolerating well. Pain was minimal. Patient also had mild transaminase elevation and an ultrasound was grossly unremarkable. Patient also is asymptomatic. At this time, there is no further inpatient workup indicated per orthopedic team and patient is medically stable for discharge with outpatient orthopedic follow-up. Disposition: Patient will be discharged home with pain control. She was instructed to follow-up with orthopedics in 1 week in clinic. Upon discharge, patient verbalized that [place] does not help with her pain and she needs alternative upon discharge. Therefore, she was given prescription for tramadol. Patient and family verbalized discharge instructions. Condition at time of discharge is stable. Approximately 60 minutes was spent in coordinating the discharge on this patient. Case discussed with Dr. Fofana. Home Meds Active Scripts Tramadol Hcl* (Ultram*) 50 Mg Tablet, 50 MG PO Q6H Y for PAIN, #30 TAB Prov:MARY VIERA V. OPERATOR PREFINISH 06/22/17 Aspirin* (Aspirin* EC) 81 Mg Tabec, 81 MG PO DAILY for 90 Days, TAB Prov:PRATEEK POWELL MD 03/15/16 Reported Medications Triamcinolone Acetonide* (Kenalog*) 0.1%-15GM Cr, 1 APPLIC TOP TID, #1 TUB 06/19/17 Amlodipine Besylate* (Amlodipine Besylate*) 10 Mg Tablet, 10 MG PO DAILY, #30 TAB 06/19/17 Clonidine Hcl* (Clonidine Hcl*) 0.1 Mg Tab, 0.1 MG PO DAILY Y for ELEVATED BLOOD PRESSURE, TAB 06/19/17 Escitalopram Oxalate* (Lexapro*) 10 Mg Tablet, 10 MG PO DAILY, #30 TAB 06/19/17 Loratadine* (Loratadine*) 10 Mg Tablet, 10 MG PO DAILY, #30 TAB 06/19/17 Esomeprazole Mag Trihydrate (Nexium) 40 Mg Capsule.dr, 40 MG PO DAILY, #30 CAP 06/19/17 Duloxetine Hcl* (Duloxetine Hcl*) 60 Mg Capsule.dr, 60 MG PO DAILY, #30 CAP 06/19/17 Gabapentin* (Gabapentin*) 300 Mg Capsule, 300 MG PO TID, #90 CAP 03/13/16 Discontinued Reported Medications Bisacodyl* (Bisacodyl*) 5 Mg Tablet.dr, 5 MG PO DAILY, TAB 03/13/16 Losartan Potassium* (Losartan Potassium*) 100 Mg Tablet, 100 MG PO DAILY, TAB 03/13/16 Discontinued Scripts Vit B12/Lmefolate Ca/Vit B6/B2 (METAFOLBIC TABLET) 1 Each Tablet, 1 EACH PO DAILY for 90 Days, TAB Prov:PRATEEK POWELL MD 03/15/16 Follow-up Plan 1.Follow-up with in 1 week [id number] [address] Office 2.Follow up with primary care physician in 1 week If you don't have one please let someone know, we can give you resources that may help you pick one. You may also call your insurance company to assign one to you. Review your medication list with your nurse before leaving and if you need new prescriptions please let your nurse know. I may have made changes to your home medications or given you new prescriptions, please let your primary doctor know as well. Stay compliant with your medications and report any side effects to your PCP or pharmacist. Return to the ER if you have any concerns and cannot reach your doctors or call your insurance company, they usually have a nurse that can help you. 3. Call 911 or go to the nearest emergency room if experiencing loss of consciousness, dizziness, chest pain, shortness of breath, vomiting/abdominal pain, speech difficulties, motor weakness or any unusual symptoms. Primary Care Provider Kami Esposito Pending Labs Laboratory Tests Test 06/22/17 05:40 White Blood Count 6.310^3/ul (4.8-10.8) Red Blood Count 4.0610^6/ul (4.20-5.40) Hemoglobin 10.6g/dl (12.0-16.0) Hematocrit 32.5% (37.0-47.0) Mean Corpuscular Volume 80.0fl (82.0-101.0) Mean Corpuscular Hemoglobin 26.1pg (29.0-33.0) Mean Corpuscular Hemoglobin Concent 32.6g/dl (32.0-37.0) Red Cell Distribution Width 14.5% (11.5-14.5) Platelet Count 20775^3/UL (140-415) Mean Platelet Volume 10.9fl (7.4-10.4) Neutrophils % 79.0% (39.0-77.0) Lymphocytes % 13.1% (15.0-51.0) Monocytes % 7.3% (0.0-11.0) Eosinophils % 0.2% (0.0-7.0) Basophils % 0.2% (0.0-2.0) Nucleated Red Blood Cells % 0.0/100WBC (0.0-0.0) Neutrophils # 5.010^3/ul (1.6-7.5) Lymphocytes # 0.810^3/ul (0.8-2.9) Monocytes # 0.510^3/ul (0.3-0.9) Eosinophils # 0.010^3/ul (0.0-0.5) Basophils # 0.010^3/ul (0.0-0.1) Nucleated Red Blood Cells # 0.010^3/ul (0.0-0.0) Sodium Level 136mmol/L (135-144) Potassium Level 4.4mmol/L (3.5-5.1) Chloride Level 105mmol/L (97-110) Carbon Dioxide Level 22mmol/L (21-31) Anion Gap 13 (8-16) Blood Urea Nitrogen 24mg/dl (7-20) Creatinine 0.66mg/dl (0.44-1.00) Glucose Level 109mg/dl (70-220) Calcium Level 9.1mg/dl (8.4-10.2) Phosphorus Level 3.2mg/dl (2.5-4.9) Magnesium Level 2.1mg/dl (1.7-2.5) MARY VIERA NP Jun 22, 2017 10:26
== END 2017-06-22 11:41 | disposition home or self-care (01) | DRG 563 ==
LOC: E/R 11:17 → MS3 14:04 → PP2 20:19
PROVIDERS: ADMIT Internal Medicine; ATTEND Internal Medicine
PROC: 0PSGXZZ Reposition Left Humeral Shaft, External Approach (ICD-10-PCS; 2017-06-19)
PROC: 0PSFXZZ Reposition Right Humeral Shaft, External Approach (ICD-10-PCS; 2017-06-19)
PROC: 0PSJXZZ Reposition Left Radius, External Approach (ICD-10-PCS; principal; 2017-06-21 12:30)
DX: S52.122A Displaced fracture of head of left radius, initial encounter for closed fracture (principal); I10 Essential (primary) hypertension; W01.0XXA Fall on same level from slipping, tripping and stumbling without subsequent striking against object, initial encounter; Y93.H2 Activity, gardening and landscaping; Y92.017 Garden or yard in single-family (private) house as the place of occurrence of the external cause; Y99.8 Other external cause status; F41.9 Anxiety disorder, unspecified; S53.124A Posterior dislocation of right ulnohumeral joint, initial encounter; S43.025A Posterior dislocation of left humerus, initial encounter
CPT/HCPCS: 71010; 73070; 73080; 73200; 76705; 80048; 80053; 80061; 82962; 83036; 83735; 84100; 84443; 85025; 85610; 85730; 93005; 94770; 96374; 96375; 96376; 97163; J0360; J0690; J1100; J1170; J1650; J1885; J2250; J2270; J2370; J2405; J2765; J3010; J3480

== ENCOUNTER 2017-06-30 14:01 | Inpatient (IN) | payer MEDICARE, BC ==
[~2017-06-30] VITALS: Ht 165.1 cm; Wt 86.9 kg
[~2017-06-30 14:01] MED LIST changes: +AMLO-147 PO; -BISA5TAB6 PO; +CLON-379 PO; +DULO60CA59 PO; +ESCI10TA PO; +ESOM40CA PO; +LORA10TA3 PO; -LOSA100T7 PO; +TRAM-40 PO; +TRIA15CR55 TOP; -VIT1TABL PO
--- NOTE | 2017-06-30 17:07 | ERA ---
ER Documentation Chief Complaint Date/Time DATE: 06/30/17 TIME: 17:02 Chief Complaint Sent from Dr Jo for evaluation and possible surgery HPI This is a 67-year-old female who presents to the emergency room from a recommendation from her surgeon. The patient had a bilateral elbow dislocation on June 19. She was admitted and recently discharged. There is a second attempt of external fixation of the left elbow during hospitalization. On Friday during her follow-up with Dr. Jo he was not happy with the healing process and recommended that the patient represented to the emergency room for admission and ORIF of the left elbow. The patient describes persistent pain that is 8 out of 10 she refuses pain medication. The pain is worse with movement but more constant. No fevers or chills. ROS All systems reviewed and are negative except as per history of present illness. Medications Home Meds Active Scripts Tramadol Hcl* (Ultram*) 50 Mg Tablet, 50 MG PO Q6H Y for PAIN, #30 TAB Prov:MARY VIERA NP 06/22/17 Aspirin* (Aspirin* EC) 81 Mg Tabec, 81 MG PO DAILY for 90 Days, TAB Prov:PRATEEK POWELL MD 03/15/16 Reported Medications Triamcinolone Acetonide* (Kenalog*) 0.1%-15GM Cr, 1 APPLIC TOP TID, #1 TUB 06/19/17 Amlodipine Besylate* (Amlodipine Besylate*) 10 Mg Tablet, 10 MG PO DAILY, #30 TAB 06/19/17 Clonidine Hcl* (Clonidine Hcl*) 0.1 Mg Tab, 0.1 MG PO DAILY Y for ELEVATED BLOOD PRESSURE, TAB 06/19/17 Escitalopram Oxalate* (Lexapro*) 10 Mg Tablet, 10 MG PO DAILY, #30 TAB 06/19/17 Loratadine* (Loratadine*) 10 Mg Tablet, 10 MG PO DAILY, #30 TAB 06/19/17 Esomeprazole Mag Trihydrate (Nexium) 40 Mg Capsule.dr, 40 MG PO DAILY, #30 CAP 06/19/17 Duloxetine Hcl* (Duloxetine Hcl*) 60 Mg Capsule.dr, 60 MG PO DAILY, #30 CAP 06/19/17 Gabapentin* (Gabapentin*) 300 Mg Capsule, 300 MG PO TID, #90 CAP 03/13/16 Allergies Allergies: Coded Allergies: No Known Allergy (Unverified , 8/21/17) PMhx/Soc History of Surgery: Yes (cholecystectomy, hernia surgery, lap band) Anesthesia Reaction: No Hx Neurological Disorder: Yes (reports stroke March 2016) Hx Respiratory Disorders: No Hx Cardiac Disorders: Yes (hypertension) Hx Psychiatric Problems: No Hx Miscellaneous Medical Probl: No Hx Alcohol Use: No Hx Substance Use: No Hx Tobacco Use: No Smoking Status: Never smoker FmHx Family History: No diabetes Physical Exam Vitals Vital Signs Date Time Temp Pulse Resp B/P Pulse Ox O2 Delivery O2 Flow Rate FiO2 06/30/17 14:06 98.7 95 20 197/91 97 Physical Exam General: Well developed, well nourished, no acute distress Head: Normocephalic, atraumatic. Eyes: EOM intact ENT: Moist mucous membranes Neck: Full ROM Respiratory: No respiratory distress Cardiovascular: Good capillary refil Abdominal: Nondistended : Deferred MSK: Bilateral upper extremities are splinted in flexion, good capillary refill to the fingers bilaterally. Limited assessment otherwise Neurologic: Alert and oriented, moving all extremities, normal speech, steady gait Skin: No rash Psych: Normal mood Result Diagram: 06/30/17 1700 Results 24 hrs Laboratory Tests Test 06/30/17 17:00 White Blood Count 7.010^3/ul Red Blood Count 4.5410^6/ul Hemoglobin 12.0g/dl Hematocrit 37.1% Mean Corpuscular Volume 81.7fl Mean Corpuscular Hemoglobin 26.4pg Mean Corpuscular Hemoglobin Concent 32.3g/dl Red Cell Distribution Width 15.0% Platelet Count 45678^3/UL Mean Platelet Volume 10.9fl Neutrophils % 66.2% Lymphocytes % 22.6% Monocytes % 8.1% Eosinophils % 2.3% Basophils % 0.4% Nucleated Red Blood Cells % 0.0/100WBC Neutrophils # (Manual) 510^3/ul Lymphocytes # 1.610^3/ul Monocytes # 0.610^3/ul Eosinophils # 0.210^3/ul Basophils # 0.010^3/ul Nucleated Red Blood Cells # 0.010^3/ul Current Medications Medications (Trade) Dose Ordered Sig/[place] Route PRN Reason Start Time Stop Time Status Last Admin Dose Admin Ondansetron HCl (Zofran Inj) 4 mg BRIDGE ORDER PRN IV NAUSEA AND/OR VOMITING 06/30/17 17:30 8 17:29 Acetaminophen (Tylenol Tab) 650 mg ER BRIDGE PRN PO MILD PAIN/FEVER 06/30/17 17:30 07/01/17 17:29 Procedures/MDM LAB INTERPRETATION: No leukocytosis MEDICAL DECISION MAKING: The patient presents to the emergency room for evaluation and inpatient hospitalization for ORIF of the left elbow fracture and dislocation. She is neurovascularly intact. She is resting comfortably. She is refusing pain medication currently. ER COURSE: I reached out to Dr. Jo who is currently in the operating room. He is unsure when the patient will go to the operating room. He states the patient can eat. I am assuming n.p.o. at midnight. He does not request any diagnostic imaging. I kept the patient and/or family informed of laboratory and diagnostic imaging results throughout the emergency room course. DISPOSITION PLAN: Medical surgical admission for ORIF of left elbow fracture dislocation CONSULTATION: Accepting care team and consultations: I discussed the current laboratory data, diagnostic imaging and emergency care provided. Admitting team: Dr. Fisher Admitting team indication: Insurance directed Consulting services: Orthopedic surgery Dr. Jo Departure Diagnosis: Primary Impression: Closed fracture dislocation of left elbow Qualified Code: S42.402K - Closed fracture dislocation of left elbow, with nonunion, subsequent encounter Condition: Stable INES BOURGEOIS MD Jun 30, 2017 17:06
[2017-06-30 17:17] LABS: BASOPHILS % 0.4 % (0.0-2.0); EOSINOPHILS # 0.2 10^3/ul (0.0-0.5); EOSINOPHILS % 2.3 % (0.0-7.0); HEMATOCRIT 37.1 % (37.0-47.0); LYMPHOCYTES # 1.6 10^3/ul (0.8-2.9); LYMPHOCYTES % 22.6 % (15.0-51.0); MEAN CORPUSCULAR HEMOGLOBIN 26.4 pg (29.0-33.0); MEAN CORPUSCULAR HGB CONC 32.3 g/dl (32.0-37.0); MEAN CORPUSCULAR VOLUME 81.7 fl (82.0-101.0); MEAN PLATELET VOLUME 10.9 fl (7.4-10.4); MONOCYTE # 0.6 10^3/ul (0.3-0.9); MONOCYTES % 8.1 % (0.0-11.0); NEUTROPHILS % 66.2 % (39.0-77.0); PLATELET COUNT 267 10^3/UL (140-415); RED BLOOD COUNT 4.54 10^6/ul (4.20-5.40)
[2017-06-30] MEDS ORDERED: ACETAMINOPHEN 325 MG TAB PO PRN ×2 (17:30→18:00)
[2017-06-30] MEDS ORDERED: ONDANSETRON 4 MG INJ IV PRN (17:30)
[2017-06-30 17:39] LABS: CALCIUM 10.1 mg/dl (8.4-10.2); CREATININE 0.64 mg/dl (0.44-1.00); POTASSIUM 4.7 mmol/L (3.5-5.1)
[2017-06-30] MEDS ORDERED: BISACODYL (EC) 5 MG TAB PO PRN (18:00)
[2017-06-30] MEDS ORDERED: MAGNESIUM HYDROXIDE 30ML CUP PO PRN (18:00)
[2017-06-30] MEDS ORDERED: NACL 0.9% 3 ML SYG IV SCH (18:00)
[2017-06-30] MEDS ORDERED: HYDROCODONE/APAP (5/325) TAB PO PRN (18:00)
[2017-06-30] MEDS ORDERED: DOCUSATE SODIUM 100 MG CAP PO PRN (18:00)
[2017-06-30 20:32] VITALS: BP 171/77; PULSE 64; RESP 20
[2017-06-30 20:35] VITALS: BP 146/74; RESP 18
[2017-06-30] MEDS: GABAPENTIN 300 MG CAP PO SCH (20:53)
[2017-06-30] MEDS: TRIAMCINOLONE ACET 0.1% 15 GM CR TOP SCH (21:00)
[2017-06-30] MEDS: AMLODIPINE 10 MG TAB PO SCH (21:26)
[2017-06-30 21:38] VITALS: Ht 165.1 cm; Wt 86.9 kg
--- NOTE | 2017-06-30 23:04 | HP ---
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 S/p Mech fall with Comminuted displaced fracture of the radial head and neck and wide dislocation of L elbow status post intraoperative closed reduction but now with non union 2. Dislocation R elbow s/p successful closed reduction 3. Hypertension. 4. Anxiety d/o 5. Hx of prev CVA PLAN: Needs CT / MRI L elbow per ortho after which she may be scheduled for surgery We will provide supportive care and pain control Continue and titrate home meds Further interventions per clinical course Plan of care d/w patient and her daughter Prophylaxis : SCds / ambulation HPI/ROS Admit Date/Time Admit Date/Time Jun 30, 2017 at 17:30 Hx of Present Illness 67-year-old female who was recently discharged from this facility June 22, 2017 after she had presented following a mechanical fall. She had sustained bilateral dislocation of both elbows, because she supposedly for her outstretched hands, however she also had a fracture in her left elbow. Both dislocations were reduced in the emergency room, but the patient required a trip to the operating room for a closed reduction of her left elbow. She went in to see orthopedic surgeon today, who did an x-ray in his office. She noted that her fracture was not healing properly, and so he sent her to the emergency room to be worked up for possible open reduction and internal fixation. The patient has had no fever, she does have pain in that left elbow, but is refusing pain medication at this time. I have spoken with the orthopedic surgeon, and patient will require CT scan as well as MRI of that elbow first. ROS 12 point review if systems was done and pertinent findings are as noted. PMH/Family/Social Past Medical History 1. Recent mechanical fall with bilateral dislocation of the elbow joint s/p closed reduction of the fracture dislocation of the left elbow 06/21/17 2. Hypertension. 3. Chronic Anxiety disorder 4. Prev CVA 5. Comminuted displaced fracture of the radial head and neck L elbow Past Surgical History * Lap band * Hernia Sx * Cholecystectomy Family History Significant Family History: diabetes Social History Alcohol Use: none Smoking Status: Never smoker Drug Use: none Exam/Review of Systems Vital Signs Vitals Vital Signs Date Time Temp Pulse Resp B/P Pulse Ox O2 Delivery O2 Flow Rate FiO2 06/30/17 20:35 98.5 70 18 146/74 98 06/30/17 20:32 Room Air Exam Constitutional: alert, oriented, No distress Psych: anxiety Head: atraumatic, normocephalic Eyes: PERRL ENMT: mucosa pink and moist Neck: non-tender, supple Respiratory: clear to auscultation, normal air movement, No diminished breath sounds, No labored breathing, No wheezing Cardiovascular: regular rate and rhythm, No murmurs/extra sounds Gastrointestinal: bowel sounds, non-tender, other (obese), soft Musculoskeletal: other (Saqib UE heavily bandaged with LUE in sling), No nl extremities to inspection Extremities: other, No edema (No LE edema) Neurological: nl mental status, nl speech, No confused Skin: No rash or lesions Labs Result Diagram: 06/30/17 1700 06/30/17 1700 Medications Medications Current Medications Aspirin (Halfprin) 81 mg DAILY PO ; Start 07/01/17 at 09:00 Duloxetine HCl (Cymbalta) 60 mg DAILY PO ; Start 07/01/17 at 09:00 Gabapentin (Neurontin) 300 mg TID PO Last administered on 06/30/17 20:53; Admin Dose 300 MG; Start 06/30/17 at 21:00 Loratadine (Claritin) 10 mg DAILY PO ; Start 07/01/17 at 09:00 Triamcinolone Acetonide (Kenalog 0.1% Cr) 1 applic TID TOP ; Start 06/30/17 at 21:00 Pantoprazole (Protonix Tab) 40 mg DAILY@06 PO ; Start 07/01/17 at 06:00 Acetaminophen (Tylenol Tab) 650 mg Q6H PRN PO PAIN LEVEL 1-3 OR FEVER; Start at 18:00 Acetaminophen/ Hydrocodone Bitart ([place] (5/325)) 1 tab Q6H PRN PO MODERATE PAIN LEVEL 4-6 Last administered on 06/30/17 18:55; Admin Dose 1 TAB; Start at 18:00 Morphine Sulfate (morphine) 2 mg Q4H PRN IV SEVERE PAIN LEVEL 7-10; Start 06/30 at 18:00 Docusate Sodium (Colace) 100 mg Q12H PRN PO CONSTIPATION; Start 06/30/17 at 18: 00 Magnesium Hydroxide (Milk Of Mag) 30 ml DAILY PRN PO CONSTIPATION; Start at 18:00 Bisacodyl (Dulcolax) 5 mg DAILY PRN PO CONSTIPATION; Start 06/30/17 at 18:00 Enoxaparin Sodium (Lovenox) 40 mg DAILY SC ; Start 07/01/17 at 09:00 Amlodipine Besylate (Norvasc) 10 mg DAILY PO Last administered on 06/30/17t 21: 26; Admin Dose 10 MG; Start 06/30/17 at 21:30 BIANCA MALONEY Jun 30, 2017 22:43
[2017-07-01 01:24] VITALS: BP 134/74; RESP 18
[2017-07-01 05:10] LABS: BASOPHILS % 0.6 % (0.0-2.0); EOSINOPHILS # 0.2 10^3/ul (0.0-0.5); EOSINOPHILS % 2.9 % (0.0-7.0); HEMATOCRIT 32.8 % (37.0-47.0); HEMOGLOBIN 10.7 g/dl (12.0-16.0); LYMPHOCYTES # 1.3 10^3/ul (0.8-2.9); LYMPHOCYTES % 25.3 % (15.0-51.0); MEAN CORPUSCULAR HEMOGLOBIN 26.4 pg (29.0-33.0); MEAN CORPUSCULAR HGB CONC 32.6 g/dl (32.0-37.0); MEAN PLATELET VOLUME 10.8 fl (7.4-10.4); MONOCYTE # 0.4 10^3/ul (0.3-0.9); PLATELET COUNT 241 10^3/UL (140-415); RED BLOOD COUNT 4.05 10^6/ul (4.20-5.40); RED CELL DISTRIBUTION WIDTH 14.5 % (11.5-14.5); WHITE BLOOD COUNT 5.1 10^3/ul (4.8-10.8)
[2017-07-01 05:44] LABS: ALBUMIN 3.8 g/dl (3.3-4.9); ALBUMIN/GLOBULIN RATIO 1.22; BILIRUBIN,INDIRECT 0.3 mg/dl (0-1.1); BILIRUBIN,TOTAL 0.3 mg/dl (0.2-1.3); CALCIUM 9.3 mg/dl (8.4-10.2); CREATININE 0.58 mg/dl (0.44-1.00); POTASSIUM 4.1 mmol/L (3.5-5.1); TOTAL PROTEIN 6.9 g/dl (6.1-8.1)
[2017-07-01] MEDS: PANTOPRAZOLE (EC) 40 MG TAB PO SCH (06:43)
[2017-07-01 07:47] VITALS: BP 134/75; RESP 18
[2017-07-01] MEDS: LORATADINE 10 MG TAB PO SCH (08:40)
[2017-07-01] MEDS: DULOXETINE 30 MG CAP DR PO SCH (08:41)
[2017-07-01] MEDS: AMLODIPINE 10 MG TAB PO SCH (08:41)
[2017-07-01] MEDS: ENOXAPARIN 40 MG/0.4 ML SYG SC SCH (08:41)
[2017-07-01] MEDS: GABAPENTIN 300 MG CAP PO SCH ×3 (08:41→20:22)
[2017-07-01] MEDS: ASPIRIN (EC) 81 MG TAB PO SCH (08:41)
[2017-07-01] MEDS: TRIAMCINOLONE ACET 0.1% 15 GM CR TOP SCH ×3 (08:42→20:22)
[2017-07-01] MEDS ORDERED: AMLODIPINE 10 MG TAB PO SCH (09:00)
[2017-07-01 14:00] VITALS: BP 136/77; RESP 18
[2017-07-01] MEDS ORDERED: LORAZEPAM 1 MG TAB PO ONE (14:00)
--- NOTE | 2017-07-01 16:50 | PN ---
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 PLAN: MRI elbow ordered pain control Continue home meds ortho aware Subjective 24 Hr Interval Summary Free Text/Dictation Pt states pain controlled, MRI pending Exam/Review of Systems Vital Signs Vitals Vital Signs Date Time Temp Pulse Resp B/P Pulse Ox O2 Delivery O2 Flow Rate FiO2 07/01/17 14:00 98.6 83 18 136/77 92 06/30/17 20:32 Room Air Intake and Output 06/30/17 06/30/17 07/01/17 15:00 23:00 07:00 Intake Total 0 ml Balance 0 ml Exam nad no mrg lungs clear abd soft no rashes both arms in casts Results Result Diagram: 07/01/17 0433 07/01/17 0433 Results 24 hrs Laboratory Tests Test 06/30/17 17:00 07/01/17 04:33 White Blood Count 7.0 5.1 # Red Blood Count 4.54 4.05 L Hemoglobin 12.0 10.7 L Hematocrit 37.1 32.8 L Mean Corpuscular Volume 81.7 L 81.0 L Mean Corpuscular Hemoglobin 26.4 L 26.4 L Mean Corpuscular Hemoglobin Concent 32.3 32.6 Red Cell Distribution Width 15.0 H 14.5 Platelet Count 267 # 241 Mean Platelet Volume 10.9 H 10.8 H Neutrophils % 66.2 63.0 Lymphocytes % 22.6 25.3 Monocytes % 8.1 8.0 Eosinophils % 2.3 2.9 Basophils % 0.4 0.6 Nucleated Red Blood Cells % 0.0 0.0 Neutrophils # (Manual) 5 3 Lymphocytes # 1.6 1.3 Monocytes # 0.6 0.4 Eosinophils # 0.2 0.2 Basophils # 0.0 0.0 Nucleated Red Blood Cells # 0.0 0.0 Sodium Level 140 138 Potassium Level 4.7 4.1 Chloride Level 103 105 Carbon Dioxide Level 25 25 Anion Gap 17 H 12 Blood Urea Nitrogen 16 16 Creatinine 0.64 0.58 Glucose Level 73 91 Calcium Level 10.1 9.3 Total Bilirubin 0.3 Direct Bilirubin 0.00 Indirect Bilirubin 0.3 Aspartate Amino Transf (AST/SGOT) 26 Alanine Aminotransferase (ALT/SGPT) 40 Alkaline Phosphatase 119 Total Protein 6.9 Albumin 3.8 Globulin 3.10 Albumin/Globulin Ratio 1.22 Medications Medications Current Medications Aspirin (Halfprin) 81 mg DAILY PO ; Start 07/01/17 at 09:00 Duloxetine HCl (Cymbalta) 60 mg DAILY PO ; Start 07/01/17 at 09:00 Gabapentin (Neurontin) 300 mg TID PO Last administered on 06/30/17 20:53; Admin Dose 300 MG; Start 06/30/17 at 21:00 Loratadine (Claritin) 10 mg DAILY PO ; Start 07/01/17 at 09:00 Triamcinolone Acetonide (Kenalog 0.1% Cr) 1 applic TID TOP ; Start 06/30/17 at 21:00 Pantoprazole (Protonix Tab) 40 mg DAILY@06 PO Last administered on 07/01/17 06 :43; Admin Dose 40 MG; Start 07/01/17 at 06:00 Acetaminophen (Tylenol Tab) 650 mg Q6H PRN PO PAIN LEVEL 1-3 OR FEVER; Start at 18:00 Acetaminophen/ Hydrocodone Bitart ([place] (5/325)) 1 tab Q6H PRN PO MODERATE PAIN LEVEL 4-6 Last administered on 06/30/17 18:55; Admin Dose 1 TAB; Start at 18:00 Morphine Sulfate (morphine) 2 mg Q4H PRN IV SEVERE PAIN LEVEL 7-10; Start 06/30 at 18:00 Docusate Sodium (Colace) 100 mg Q12H PRN PO CONSTIPATION; Start 06/30/17 at 18: 00 Magnesium Hydroxide (Milk Of Mag) 30 ml DAILY PRN PO CONSTIPATION; Start at 18:00 Bisacodyl (Dulcolax) 5 mg DAILY PRN PO CONSTIPATION; Start 06/30/17 at 18:00 Enoxaparin Sodium (Lovenox) 40 mg DAILY SC ; Start 07/01/17 at 09:00 Amlodipine Besylate (Norvasc) 10 mg DAILY PO Last administered on 06/30/17t 21: 26; Admin Dose 10 MG; Start 06/30/17 at 21:30 LETICIA JAMESON MD Jul 01, 2017 16:49
--- NOTE | 2017-07-01 17:07 | RADRPT ---
AMENDMENT: 07/01/2017 10:07:41 PM Murphy Funez M.D. Correction: The second sentence in the impression should read that the sagittal proton density sequ ence is the most usable without as much motion artifact and shows a large joint effusion, impacted r adial head fracture and tear of the common extensor tendon origin and probable lateral collateral li gamentous tear. PROCEDURE: MRI OF THE LEFT ELBOW. CLINICAL INDICATION: Fall, dislocation. TECHNIQUE: Multiple MRI images of the left elbow were obtained utilizing multiple sequences and all three planes. Images were interpreted on high-resolution PACS system. COMPARISON: FINDINGS: This study is predominately nondiagnostic due to motion artifact. The sagittal proton density seque nce does demonstrate a very large joint effusion and there is an impacted radial head fracture. The ulnotrochlear joint is reduced. There is tearing of the common extensor tendon origin and a probab le tear of the lateral collateral ligamentous complex. Consider either CT or CT arthrography if cli nically indicated for further evaluation. IMPRESSION: 1. The study is severely compromised borderline diagnostic because of motion artifact. 2. The sagittal proton density sequence is the most years of all dome show a large joint effusion, impacted radial head fracture and tear of the common extensor tendon origin and probable lateral col lateral ligamentous tear. RPTAT: XX .Murphy Funez MD, Date Time Electronically viewed and signed by .Murphy Funez MD, on 07/01/2017 22:08 .T/
--- NOTE | 2017-07-01 18:44 | RADRPT ---
PROCEDURE: CT of the left elbow CLINICAL INDICATION: Left elbow pain, history of dislocation TECHNIQUE: Axial images through the left elbow without IV contrast. Coronal and sagittal reforma ts. Images were interpreted at an independent PACS workstation. CTDI 57.31 mGy DLP 101 0.02 mGy-cm One or more of the following dose reduction techniques were used: Automated exposure control Adjustment of the mA and / or kV according to patient size Use of iterative reconstruction technique. COMPARISON: MRI of the left elbow dated July 01, 2017 and radiographs of the left elbow dated [address] of the left elbow June 19, 2017 FINDINGS: Since the previous MRI study performed earlier in the day, there has been interval posterior subluxa tion of the elbow with the humerus perched on the olecranon (sagittal 65), nearly completely disloca peter. There is also lateral subluxation of the radial head with respect to the capitellum (axial 67). There is redemonstration of extensive comminuted fracturing of the elbow, included a comminuted radi al head fracture as well as the adjacent avulsion fracture fragments near the lateral collateral lig ament and common extensor origin (coronal 101). There are additional comminuted bone fragment seen along the anterior margin of the distal humerus (coronal 74) and small fracture fragments bordering the proximal ulna near the coronoid process. There is diffuse soft tissue swelling and a joint effusion . There is no definite new fracture from the prior CT. IMPRESSION: 1. Markedly unstable elbow joint. Since the prior MRI performed earlier in the day there is new po sterior subluxation with the distal humerus now perched on the coronoid process and there is persist ent lateral subluxation of the residual radial head. 2. Extensive surrounding bone fragments about the elbow, likely originating from the radial head, l ateral epicondyle, and coronoid process of the ulna. 3. Extensive diffuse soft tissue swelling and large complex joint effusion. RPTAT: UU .Sinan Cheek MD, Date Time Electronically viewed and signed by .Sinan Cheek MD, on 07/01/2017 18:44 .K/
[2017-07-01 19:05] VITALS: BP 133/92; RESP 18
[2017-07-02 01:39] VITALS: BP 131/70; RESP 18
--- NOTE | 2017-07-02 03:38 | CONS ---
DATE OF ADMISSION: 06/30/2017 DATE OF CONSULTATION: 07/01/2017 HISTORY OF PRESENT ILLNESS: The patient is a 67-year-old right- handed female, who was initially seen by me around June 20, 2017, when she was admitted following the manipulative reduction of the bilateral elbow dislocation in the ER. She came to the ER on June 20 following a fall, landing on her both outstretched upper extremities. At that time, she developed painful swelling and limit of motion of the elbow and initial evaluation in the emergency room revealed an obvious dislocation of the bilateral elbow. A manipulative reduction was carried out in the ER, which was followed by immobilization in a splint. However, when I reviewed the post reduction x-rays in the splint, left elbow was re-dislocated. She was taken to surgery on the next day and manipulative reduction of the left elbow was carried out. After confirming satisfactory alignment of the left elbow joint, it was re-immobilized in a posterior splint. She was discharged following the repeated manipulation of the left elbow. However, when she was seen by me in followup care on June 29, her left elbow was dislocated again and she was advised to return to the emergency room to be admitted. PHYSICAL EXAMINATION: GENERAL APPEARANCE: Revealed a 67-year-old female, who was not in any acute distress. EXTREMITIES: Both upper extremities in a long-arm posterior splint. There were no signs of neurovascular compromise. IMAGING STUDIES: Repeated x-rays of the left elbow revealed an obvious dislocation of the left elbow. IMPRESSION: Recurrent dislocation of the left elbow, probably because of the instability because of the stabilizing ligament tear. TREATMENT PLAN: 1. Additional diagnostic studies including CT scan and MRI scan of the left elbow. 2. Open repair of the left elbow as needed to reestablish a stable left elbow joint. Dictated By: In Kristal Jo MD /alee/ileana /Document#: [id number]
[2017-07-02] MEDS: PANTOPRAZOLE (EC) 40 MG TAB PO SCH (05:41)
[2017-07-02 07:00] VITALS: BP 130/72; RESP 18
[2017-07-02] MEDS: AMLODIPINE 10 MG TAB PO SCH ×2 (09:00→12:04)
[2017-07-02] MEDS: LORATADINE 10 MG TAB PO SCH ×2 (09:00→12:03)
[2017-07-02] MEDS: DULOXETINE 30 MG CAP DR PO SCH ×2 (09:00→12:03)
[2017-07-02] MEDS: ASPIRIN (EC) 81 MG TAB PO SCH ×2 (09:00→12:03)
[2017-07-02] MEDS: ENOXAPARIN 40 MG/0.4 ML SYG SC SCH ×2 (09:00→12:04)
[2017-07-02] MEDS: GABAPENTIN 300 MG CAP PO SCH ×3 (09:00→21:12)
[2017-07-02] MEDS: TRIAMCINOLONE ACET 0.1% 15 GM CR TOP SCH ×3 (09:00→21:12)
--- NOTE | 2017-07-02 13:54 | PN ---
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 PLAN OR tomorrow Pre Operative cardiac risk stratification: Orthopedic surgery is an intermediate risk procedure. Pt is able to complete 4 METS of activity given she can walk several blocks and climb a flight of stairs. Pt does not have any hx of CHF, DM2 with insulin use, hx of CVA, hx of CKD with baseline Cr >2, or history of IN. Therefore no further cardiac testing is indicated prior to an intermediate risk (orthopedic) procedure. Subjective 24 Hr Interval Summary Free Text/Dictation Pt feels ok. Wondering when surgery will be. States she is able to climb a flight of stairs without stopping and walk several blocks Exam/Review of Systems Vital Signs Vitals Vital Signs Date Time Temp Pulse Resp B/P Pulse Ox O2 Delivery O2 Flow Rate FiO2 07/02/17 07:00 97.5 73 18 130/72 94 06/30/17 20:32 Room Air Intake and Output 07/01/17 07/01/17 07/02/17 15:00 23:00 07:00 Intake Total 600 ml 600 ml Balance 600 ml 600 ml Exam nad no mrg lungs clear abd soft no rashes Results Result Diagram: 07/01/17 0433 07/01/17 0433 Medications Medications Current Medications Aspirin (Halfprin) 81 mg DAILY PO Last administered on 07/02/17 12:03; Admin Dose 81 MG; Start 07/01/17 at 09:00 Duloxetine HCl (Cymbalta) 60 mg DAILY PO Last administered on 07/02/17 12:03; Admin Dose 60 MG; Start 07/01/17 at 09:00 Gabapentin (Neurontin) 300 mg TID PO Last administered on 07/01/17 20:22; Admin Dose 300 MG; Start 06/30/17 at 21:00 Loratadine (Claritin) 10 mg DAILY PO Last administered on 07/02/17 12:03; Admin Dose 10 MG; Start 07/01/17 at 09:00 Triamcinolone Acetonide (Kenalog 0.1% Cr) 1 applic TID TOP Last administered on 07/01/17 20:22; Admin Dose 1 APPLIC; Start 06/30/17 at 21:00 Pantoprazole (Protonix Tab) 40 mg DAILY@06 PO Last administered on 07/02/17 05 :41; Admin Dose 40 MG; Start 07/01/17 at 06:00 Acetaminophen (Tylenol Tab) 650 mg Q6H PRN PO PAIN LEVEL 1-3 OR FEVER; Start at 18:00 Acetaminophen/ Hydrocodone Bitart ([place] (5/325)) 1 tab Q6H PRN PO MODERATE PAIN LEVEL 4-6 Last administered on 06/30/17 18:55; Admin Dose 1 TAB; Start at 18:00 Morphine Sulfate (morphine) 2 mg Q4H PRN IV SEVERE PAIN LEVEL 7-10; Start 06/30 at 18:00 Docusate Sodium (Colace) 100 mg Q12H PRN PO CONSTIPATION; Start 06/30/17 at 18: 00 Magnesium Hydroxide (Milk Of Mag) 30 ml DAILY PRN PO CONSTIPATION; Start at 18:00 Bisacodyl (Dulcolax) 5 mg DAILY PRN PO CONSTIPATION; Start 06/30/17 at 18:00 Enoxaparin Sodium (Lovenox) 40 mg DAILY SC Last administered on 07/02/17 12:04 ; Admin Dose 40 MG; Start 07/01/17 at 09:00 Amlodipine Besylate (Norvasc) 10 mg DAILY PO Last administered on 07/02/17 12: 04; Admin Dose 10 MG; Start 06/30/17 at 21:30 LETICIA JAMESON MD Jul 02, 2017 13:54
[2017-07-02 14:00] VITALS: BP 140/80; RESP 20
[2017-07-02] MEDS ORDERED: LORAZEPAM 1 MG TAB PO ONE (15:30)
[2017-07-02 20:00] VITALS: BP 136/84; RESP 19
--- NOTE | 2017-07-02 21:01 | RADRPT ---
PROCEDURE: MR arthrogram left elbow CLINICAL INDICATION: 67-year-old female. Status post fracture dislocation of the left elbow. Pre op assessment. TECHNIQUE: MRI of the left elbow was performed as axial proton density with and without fat suppre ssion, coronal proton density with and without fat suppression and sagittal proton density with and without fat suppression COMPARISON: CT left elbow July 01, 2017 and MRI left elbow July 01, 2017 FINDINGS: BONES: There is persistent posterior and radial subluxation of the fractured radial head at the radiocapite llar joint. There is mild radial offset of the sigmoid notch of the ulna relative to the humeral tr ochlea. However the previously identified posterior dislocation of the ulna has been reduced. Align ment of the proximal radioulnar joint remains anatomic (/). There is a comminuted intra-articular fracture of the anterior radial head with bony deficiency. Gr eater than 50% of the anterior radial head is fractured and comminuted with displaced bone fragments . Small fracture arising from the ulnar aspect of the coronoid process seen on CT is not well seen o n MRI. No acute fractures of the distal humerus are identified. There is a large elbow joint effusion. There are intra-articular bone fragments. A dominant 1.1 cm bone fragment is present in the coronoid fossa (03/01). A dominant 1.1 cm a bone fragment is presen t at the radial aspect of the olecranon in the olecranon fossa (03/07). A 1 cm bone fragment is pres ent anterior to the radial neck (/). Additional bone fragments seen on CT are less well seen on MRI. SOFT TISSUES: Lateral collateral ligament and proximal radio-ulnar collateral ligament are completely torn. Ulnar collateral ligament is completely torn. There is outpouching of joint fluid through a defect throug h the ulnar collateral ligament at the ulnar aspect of the elbow. There is a complete tear of the common extensor tendons at their origin with mild retraction. The c ommon flexor tendons are intact with mildly increased signal intensity likely related to tendinopath y from the trauma. Triceps tendon is intact. Biceps tendon insertion and brachialis muscular insertion are intact. The ulnar nerve is anatomically situated in the cubital tunnel. Evaluation of the cubital retinacul um is limited. IMPRESSION: Improved alignment of the elbow since the CT scan performed July 01, 2017 at 06:16 p.m. There is persistent posterior and radial subluxation of the fractured radial head at the radiocapitellar join t and there is mild radial subluxation of the coronoid process of the ulna at the humero-ulnar joint . Proximal radio-ulnar joint appears intact. Comminuted fracture of the anterior radial head results in greater than 50% bony deficiency. There are multiple displaced bone fragments. Three dominant intra-articular bone fragments are described above. Complete tears of the radial and ulnar supporting ligaments of the elbow. Common extensor tendon is completely torn. Common flexor tendon remains intact. Ulnar nerve is anatomically situated in the cubital tunnel. Evaluation of the cubital retinaculum i s limited. RPTAT: HCTS Physician Gaby Date Time Electronically viewed and signed by Physician Gaby on 07/02/2017 21:01 /
--- NOTE | 2017-07-02 21:08 | PN ---
DATE: 07/02/2017 SUBJECTIVE DATA: As a preparation MRI scan was obtained, but the MRI scan is not informative because of the motion artifact. Repeating MRI scan with additional precaution including some type of oral sedation along with the patient's understanding that she should not move during the MRI scan. OBJECTIVE DATA: CT scan of the left elbow revealed that there is a considerable fracture involving the radial head with the fracture fragment scattered around. Coronoid process does not seems to be damaged too much. ASSESSMENT AND PLAN: With the MRI scan we will have a better idea about the degree of the damage involving collateral ligament. She may need primary replacement of the radial head. However, this is not clear. She may need radial head replacement procedure later on as a second stage procedure if it is needed. Dictated By: In Kristal Jo MD /[email or web address] /Document#: [id number]
[2017-07-03 02:00] VITALS: BP 131/72; RESP 19
[2017-07-03] MEDS: PANTOPRAZOLE (EC) 40 MG TAB PO SCH (06:00)
[2017-07-03 07:40] VITALS: BP 128/80; RESP 20
[2017-07-03] MEDS: DULOXETINE 30 MG CAP DR PO SCH (09:00)
[2017-07-03] MEDS: AMLODIPINE 10 MG TAB PO SCH (09:00)
[2017-07-03] MEDS: ENOXAPARIN 40 MG/0.4 ML SYG SC SCH (09:00)
[2017-07-03] MEDS: ASPIRIN (EC) 81 MG TAB PO SCH (09:00)
[2017-07-03] MEDS: GABAPENTIN 300 MG CAP PO SCH ×3 (09:00→20:41)
[2017-07-03] MEDS: TRIAMCINOLONE ACET 0.1% 15 GM CR TOP SCH ×3 (09:00→20:41)
[2017-07-03] MEDS: LORATADINE 10 MG TAB PO SCH (09:00)
--- NOTE | 2017-07-03 13:15 | PN ---
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 PLAN OR as per ortho no further preop cardiac testing indicated as per my note 8.23 Subjective 24 Hr Interval Summary Free Text/Dictation Sleeping this AM Exam/Review of Systems Vital Signs Vitals Vital Signs Date Time Temp Pulse Resp B/P Pulse Ox O2 Delivery O2 Flow Rate FiO2 07/03/17 07:40 98.5 74 20 128/80 93 06/30/17 20:32 Room Air Intake and Output 07/02/17 07/02/17 07/03/17 15:00 23:00 07:00 Intake Total 1260 ml 400 ml Output Total 1000 ml Balance 260 ml 400 ml Exam laying in bed resp nonlabored abd nondistended no edema no rashes Results Result Diagram: 07/01/17 0433 07/01/17 0433 Medications Medications Current Medications Aspirin (Halfprin) 81 mg DAILY PO Last administered on 07/02/17 12:03; Admin Dose 81 MG; Start 07/01/17 at 09:00 Duloxetine HCl (Cymbalta) 60 mg DAILY PO Last administered on 07/02/17 12:03; Admin Dose 60 MG; Start 07/01/17 at 09:00 Gabapentin (Neurontin) 300 mg TID PO Last administered on 07/02/17 21:12; Admin Dose 300 MG; Start 06/30/17 at 21:00 Loratadine (Claritin) 10 mg DAILY PO Last administered on 07/02/17 12:03; Admin Dose 10 MG; Start 07/01/17 at 09:00 Triamcinolone Acetonide (Kenalog 0.1% Cr) 1 applic TID TOP Last administered on 07/03/17 09:00; Admin Dose 1 APPLIC; Start 06/30/17 at 21:00 Pantoprazole (Protonix Tab) 40 mg DAILY@06 PO Last administered on 07/02/17 05 :41; Admin Dose 40 MG; Start 07/01/17 at 06:00 Acetaminophen (Tylenol Tab) 650 mg Q6H PRN PO PAIN LEVEL 1-3 OR FEVER; Start at 18:00 Acetaminophen/ Hydrocodone Bitart ([place] (5/325)) 1 tab Q6H PRN PO MODERATE PAIN LEVEL 4-6 Last administered on 06/30/17 18:55; Admin Dose 1 TAB; Start at 18:00 Morphine Sulfate (morphine) 2 mg Q4H PRN IV SEVERE PAIN LEVEL 7-10; Start 06/30 at 18:00 Docusate Sodium (Colace) 100 mg Q12H PRN PO CONSTIPATION; Start 06/30/17 at 18: 00 Magnesium Hydroxide (Milk Of Mag) 30 ml DAILY PRN PO CONSTIPATION; Start at 18:00 Bisacodyl (Dulcolax) 5 mg DAILY PRN PO CONSTIPATION; Start 06/30/17 at 18:00 Enoxaparin Sodium (Lovenox) 40 mg DAILY SC Last administered on 07/02/17 12:04 ; Admin Dose 40 MG; Start 07/01/17 at 09:00 Amlodipine Besylate (Norvasc) 10 mg DAILY PO Last administered on 07/02/17 12: 04; Admin Dose 10 MG; Start 06/30/17 at 21:30 LETICIA JAMESON MD Jul 03, 2017 13:15
[2017-07-03 15:29] VITALS: BP 133/76; RESP 18
[2017-07-03 19:51] VITALS: BP 135/83; RESP 22
[2017-07-04] VITALS (16 sets, daily range): BP systolic 125–154; BP diastolic 73–90; PULSE 72–88; RESP 15–23
[2017-07-04 05:37] LABS: INR 0.98
[2017-07-04 05:51] LABS: CREATININE 0.59 mg/dl (0.44-1.00)
[2017-07-04] MEDS: PANTOPRAZOLE (EC) 40 MG TAB PO SCH (06:00)
[2017-07-04 07:58] LABS: BASOPHILS % 0.4 % (0.0-2.0); EOSINOPHILS # 0.2 10^3/ul (0.0-0.5); EOSINOPHILS % 3.8 % (0.0-7.0); HEMATOCRIT 34.8 % (37.0-47.0); HEMOGLOBIN 11.4 g/dl (12.0-16.0); LYMPHOCYTES # 1.2 10^3/ul (0.8-2.9); LYMPHOCYTES % 20.9 % (15.0-51.0); MEAN CORPUSCULAR HGB CONC 32.8 g/dl (32.0-37.0); MEAN CORPUSCULAR VOLUME 82.3 fl (82.0-101.0); MEAN PLATELET VOLUME 12.4 fl (7.4-10.4); MONOCYTE # 0.4 10^3/ul (0.3-0.9); MONOCYTES % 7.5 % (0.0-11.0); NEUTROPHILS % 67.2 % (39.0-77.0); PLATELET COUNT 219 10^3/UL (140-415); RED BLOOD COUNT 4.23 10^6/ul (4.20-5.40); RED CELL DISTRIBUTION WIDTH 14.6 % (11.5-14.5); WHITE BLOOD COUNT 5.5 10^3/ul (4.8-10.8)
[2017-07-04 08:13] LABS: POSITIVE DIFF @See below
[2017-07-04] MEDS: DULOXETINE 30 MG CAP DR PO SCH (09:00)
[2017-07-04] MEDS: AMLODIPINE 10 MG TAB PO SCH (09:00)
[2017-07-04] MEDS: ENOXAPARIN 40 MG/0.4 ML SYG SC SCH (09:00)
[2017-07-04] MEDS: ASPIRIN (EC) 81 MG TAB PO SCH (09:00)
[2017-07-04] MEDS: LORATADINE 10 MG TAB PO SCH (09:00)
[2017-07-04] MEDS: GABAPENTIN 300 MG CAP PO SCH ×3 (09:00→21:17)
[2017-07-04 09:08] LABS: CALCIUM 9.6 mg/dl (8.4-10.2); CREATININE 0.66 mg/dl (0.44-1.00); POTASSIUM 4.2 mmol/L (3.5-5.1)
[2017-07-04] MEDS: TRIAMCINOLONE ACET 0.1% 15 GM CR TOP SCH ×3 (10:25→21:00)
[2017-07-04] MEDS ORDERED: MIDAZOLAM 1 MG/ML 2 ML INJ ONE (15:40)
--- NOTE | 2017-07-04 15:40 | HPN ---
Date/Time of Note Date/Time of Note DATE: 07/04/17 TIME: 15:39 Interval H&P Admission Note Pt. seen H&P reviewed: No system changes PHILL CARTAGENA MD Jul 04, 2017 15:40
--- NOTE | 2017-07-04 15:59 | PN ---
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 PLAN OR today dispo as per ortho Subjective 24 Hr Interval Summary Free Text/Dictation Pt sleeping this AM Exam/Review of Systems Vital Signs Vitals Vital Signs Date Time Temp Pulse Resp B/P Pulse Ox O2 Delivery O2 Flow Rate FiO2 07/04/17 14:05 98.0 72 18 132/84 99 Room Air Intake and Output 07/03/17 07/03/17 07/04/17 15:00 23:00 07:00 Intake Total 300 ml Balance 300 ml Exam nad resp non labored no abd distension no edema no rashes Results Result Diagram: 07/04/17 0425 07/04/17 0816 Results 24 hrs Laboratory Tests Test 07/04/17 04:25 07/04/17 08:16 White Blood Count 5.5 Red Blood Count 4.23 Hemoglobin 11.4 L Hematocrit 34.8 L Mean Corpuscular Volume 82.3 Mean Corpuscular Hemoglobin 27.0 L Mean Corpuscular Hemoglobin Concent 32.8 Red Cell Distribution Width 14.6 H Platelet Count 219 Mean Platelet Volume 12.4 H Neutrophils % 67.2 Lymphocytes % 20.9 Monocytes % 7.5 Eosinophils % 3.8 Basophils % 0.4 Nucleated Red Blood Cells % 0.0 Neutrophils # (Manual) 3.7 Lymphocytes # 1.2 Monocytes # 0.4 Eosinophils # 0.2 Basophils # 0.0 Nucleated Red Blood Cells # 0.0 Prothrombin Time 13.0 Prothrombin Time Ratio 1.0 INR International Normalized Ratio 0.98 Blood Urea Nitrogen 16 15 Creatinine 0.59 0.66 Sodium Level 142 Potassium Level 4.2 Chloride Level 104 Carbon Dioxide Level 25 Anion Gap 17 H Glucose Level 98 Calcium Level 9.6 Medications Medications Current Medications Aspirin (Halfprin) 81 mg DAILY PO Last administered on 07/02/17t 12:03; Admin Dose 81 MG; Start 07/01/17 at 09:00 Duloxetine HCl (Cymbalta) 60 mg DAILY PO Last administered on 07/02/17 12:03; Admin Dose 60 MG; Start 07/01/17 at 09:00 Gabapentin (Neurontin) 300 mg TID PO Last administered on 07/03/17 20:41; Admin Dose 300 MG; Start 06/30/17 at 21:00 Loratadine (Claritin) 10 mg DAILY PO Last administered on 07/02/17 12:03; Admin Dose 10 MG; Start 07/01/17 at 09:00 Triamcinolone Acetonide (Kenalog 0.1% Cr) 1 applic TID TOP Last administered on 07/04/17 13:55; Admin Dose 1 APPLIC; Start 06/30/17 at 21:00 Pantoprazole (Protonix Tab) 40 mg DAILY@06 PO Last administered on 07/02/17 05 :41; Admin Dose 40 MG; Start 07/01/17 at 06:00 Acetaminophen (Tylenol Tab) 650 mg Q6H PRN PO PAIN LEVEL 1-3 OR FEVER; Start at 18:00 Acetaminophen/ Hydrocodone Bitart ([place] (5/325)) 1 tab Q6H PRN PO MODERATE PAIN LEVEL 4-6 Last administered on 06/30/17 18:55; Admin Dose 1 TAB; Start at 18:00 Morphine Sulfate (morphine) 2 mg Q4H PRN IV SEVERE PAIN LEVEL 7-10; Start 06/30 at 18:00 Docusate Sodium (Colace) 100 mg Q12H PRN PO CONSTIPATION; Start 06/30/17 at 18: 00 Magnesium Hydroxide (Milk Of Mag) 30 ml DAILY PRN PO CONSTIPATION; Start at 18:00 Bisacodyl (Dulcolax) 5 mg DAILY PRN PO CONSTIPATION; Start 06/30/17 at 18:00 Enoxaparin Sodium (Lovenox) 40 mg DAILY SC Last administered on 07/02/17 12:04 ; Admin Dose 40 MG; Start 07/01/17 at 09:00 Amlodipine Besylate (Norvasc) 10 mg DAILY PO Last administered on 07/02/17 12: 04; Admin Dose 10 MG; Start 06/30/17 at 21:30 LETICIA JAMESON MD Jul 04, 2017 15:59
[2017-07-04] MEDS ORDERED: PHENYLephrine (100 MCG/ML) 5ML SYG ONE ×2 (16:12→17:46)
[2017-07-04] MEDS ORDERED: hydrALAzine 20 MG INJ ONE (17:09)
[2017-07-04] MEDS ORDERED: POLYMYXIN/BACITRACIN 1L IRRIG ONE (17:40)
[2017-07-04] MEDS ORDERED: HYDROmorphONE (0.2 MG/ML) 10ML SYG IV PRN (19:30)
[2017-07-04] MEDS ORDERED: LABETALOL HCL 20MG INJ IV PRN (19:30)
[2017-07-04] MEDS ORDERED: MEPERIDINE 25 MG INJ IV PRN (19:30)
[2017-07-04] MEDS ORDERED: OXYCODONE/ACETAMINOPHEN (5/325) TAB PO PRN ×2 (19:30)
[2017-07-04] MEDS ORDERED: FENTAnyl 50 MCG/ML VIAL IV PRN (19:30)
[2017-07-04] MEDS ORDERED: DIPHENHYDRAMINE 50 MG INJ IV PRN (19:30)
[2017-07-04] MEDS ORDERED: METOCLOPRAMIDE 10 MG INJ IV PRN (19:30)
[2017-07-04] MEDS ORDERED: NALOXONE (0.4 MG/ML) INJ IV PRN (19:30)
[2017-07-04] MEDS ORDERED: hydrALAzine 20 MG INJ IV PRN (19:30)
[2017-07-04] MEDS ORDERED: ROPIVACAINE 0.5 % 30 ML VIAL ONE (19:38)
[2017-07-04] MEDS ORDERED: LIDOCAINE 2% (SDV) 5 ML INJ ONE (19:52)
[2017-07-04] MEDS ORDERED: ROCURONIUM 50 MG INJ ONE (19:52)
[2017-07-04] MEDS ORDERED: ETOMIDATE 20 MG INJ ONE (19:52)
[2017-07-04] MEDS ORDERED: ONDANSETRON 4 MG INJ ONE (19:53)
[2017-07-04] MEDS ORDERED: METOCLOPRAMIDE 10 MG INJ ONE (19:53)
[2017-07-04] MEDS ORDERED: CEFAZOLIN 1 GM INJ ONE (19:59)
[2017-07-04] MEDS ORDERED: HYDROCODONE/APAP (10/325) TAB PO PRN (20:00)
[2017-07-04] MEDS ORDERED: CEFAZOLIN 1 GM/50 ML (PMX) 50 ML IVPB SCH (20:00)
[2017-07-04] MEDS ORDERED: NACL 0.9% 3 ML SYG IV SCH (20:00)
[2017-07-04] MEDS: ONDANSETRON 4 MG INJ IV PRN ×2 (20:22→21:23)
[2017-07-04] MEDS: morphine 2 MG INJ IV PRN (20:28)
--- NOTE | 2017-07-04 20:28 | SIPON ---
Date/Time of Note Date/Time of Note DATE: 07/04/17 TIME: 20:08 Operative Report Preoperative Diagnosis recurrent dislocation of Lt. elbow with communited displaced fracture of radial head . Postoperative Diagnosis same as preop Operation/Procedure Performed open reduction of dislocated Lt. elbow and prosthetic replacement of radial head Surgeon: PHILL CARTAGENA MD Anesthesia Type: general Transfusion Required: no Specimen: none Specimens radial head Grafts/Implants: none Grafts/Implants prosthetic radial head Complications: no PHILL CARTAGENA MD Jul 04, 2017 20:26
[2017-07-04 20:32] LABS: BASOPHILS % 0.2 % (0.0-2.0); EOSINOPHILS # 0.1 10^3/ul (0.0-0.5); EOSINOPHILS % 1.1 % (0.0-7.0); HEMATOCRIT 32.8 % (37.0-47.0); HEMOGLOBIN 10.9 g/dl (12.0-16.0); LYMPHOCYTES # 1.1 10^3/ul (0.8-2.9); LYMPHOCYTES % 13.5 % (15.0-51.0); MEAN CORPUSCULAR HEMOGLOBIN 26.7 pg (29.0-33.0); MEAN CORPUSCULAR HGB CONC 33.2 g/dl (32.0-37.0); MEAN CORPUSCULAR VOLUME 80.4 fl (82.0-101.0); MEAN PLATELET VOLUME 10.1 fl (7.4-10.4); MONOCYTE # 0.5 10^3/ul (0.3-0.9); MONOCYTES % 6.3 % (0.0-11.0); NEUTROPHILS % 78.5 % (39.0-77.0); PLATELET COUNT 254 10^3/UL (140-415); RED BLOOD COUNT 4.08 10^6/ul (4.20-5.40); RED CELL DISTRIBUTION WIDTH 14.4 % (11.5-14.5); WHITE BLOOD COUNT 8.5 10^3/ul (4.8-10.8)
[2017-07-04] MEDS: SOD CHLORIDE 0.9% 1,000 ML IV SCH (21:17)
[2017-07-04] MEDS ORDERED: CEFAZOLIN 1 GM/50 ML (PMX) 50 ML IVPB ONE (21:50)
--- NOTE | 2017-07-04 22:10 | RADRPT ---
PROCEDURE: XR Elbow. CLINICAL INDICATION: 67 years of age, female. Postop. TECHNIQUE: Three views of the left elbow. COMPARISON: None available. FINDINGS: There is a radial head prosthesis that has the expected postoperative appearance. Normal alignment of the radiocapitellar joint. The elbow is held in flexion and appears anatomically aligned on thes e limited views. There are suture anchors at the medial and lateral epicondyles of the distal humerus. There is a 0. 6 cm ununited bone fragment at the anterior aspect of the joint. There are skin jos. There is a dorsal splint. Soft tissue swelling and soft tissue gas is in k eeping with recent surgery. IMPRESSION: Radial head prosthesis has the expected postoperative appearance. There is normal alignment of the elbow on these limited views. Suture anchors in the distal humerus. Ununited bone fragment at the anterior aspect of the joint. RPTAT: HCTS Physician Gaby Date Time Electronically viewed and signed by Physician Gaby on 07/04/2017 22:10 /
--- NOTE | 2017-07-05 04:25 | RADRPT ---
PROCEDURE: Intraoperative fluoroscopy CLINICAL INDICATION: 67-year-old female. Left elbow ORIF. TECHNIQUE: 21 fluoroscopic images of the left elbow were obtained by the operating surgeon. Total fluoroscopic time: 86.3 seconds COMPARISON: MRI left elbow July 02, 2017 and postop radiographs FINDINGS: Multiple fluoroscopic images demonstrate progressive placement of a radial head prosthesis. Suture a nchors are placed in the medial and lateral humeral epicondyles. At the end of the procedure, the e lbow is held in flexion and alignment is anatomic. IMPRESSION: Intraoperative fluoroscopy, as described. RPTAT: HCTS Physician Gaby Date Time Electronically viewed and signed by Physician Gaby on 07/04/2017 22:46 CS/
--- NOTE | 2017-07-05 04:25 | OPR ---
DATE OF OPERATION: 07/04/2017 PREOPERATIVE DIAGNOSIS: Traumatic dislocation of the left elbow joint with comminuted and displaced fracture of the radial head and extensive soft tissue injuries. OPERATION PERFORMED: Open reduction of the dislocated left elbow joint, followed by an extensive collateral ligament repair and replacement of the radial head. ANESTHESIA: General anesthesia. SURGEON: Binh Jo MD. OPERATIVE PROCEDURE: Under general anesthesia, the patient was placed in supine position upon the OR table. Usual prep and drape were done exposing the left upper extremity. A tourniquet was placed over the proximal portion of the left and was inflated up to 250 mmHg prior to the procedure. First the dislocated and an extremely unstable elbow was reduced while the patient was under anesthesia. After confirming acceptable alignment, following procedures were carried out. First through a lateral incision, the lateral aspect of the left elbow was approached. Exploration revealed the following. There was a severely comminuted and markedly displaced fracture of the radial head involving about 2/3 of the fibular head. There also was an extensive avulsion type of tear involving the lateral collateral ligaments. After proper exposure, the radial head was removed at the level of the neck. Also scattered fractured radial head fragments were all removed and the area was re-irrigated with copious amount of sterile solution. At this point, the radial head was replaced in the following manner. First using broaches up to size 10 broach, the intramedullary nail was space was prepared. Using trocars, intramedullary canal was prepared and utilizing trial stem and head, the proper size of head and stem was prepared. It was decided that a size 10 stem with 24 mm head was the best component. With the selected radial head prosthesis in place, the elbow joint was reduced and the joint was further stabilized by repairing the lateral collateral ligament. Attention was then directed to the medial side. Through the medial opening, the area was explored. The space between the olecranon and distal humerus was cleaned of any debris. It was noted that there were no fractures involving coronoid. Again medial collateral ligaments were repaired as best as possible. Following the repair of the lateral and medial collateral ligament, the closure of the incision was carried out using 0 Vicryl for muscle and fascia and 2-0 Vicryl for subcutaneous tissues. Final skin closure was carried out with skin jos. The left elbow joint was immobilized with a posterior splint in a flexed position up to about 120 degree in order to maintain the elbow joint in reduced position. The patient tolerated the entire procedure very well and was sent to the recovery room in excellent condition. Dictated By: In Kristal Jo MD /alee/ileana /Document#: [id number]
[2017-07-05] MEDS: SOD CHLORIDE 0.9% 1,000 ML IV SCH (06:38)
[2017-07-05] MEDS: PANTOPRAZOLE (EC) 40 MG TAB PO SCH (06:39)
[2017-07-05 08:28] VITALS: BP 142/70; RESP 18
[2017-07-05] MEDS: CEFAZOLIN 1 GM/50 ML (PMX) 50 ML IVPB SCH ×3 (08:47→15:28)
[2017-07-05] MEDS: LORATADINE 10 MG TAB PO SCH (08:48)
[2017-07-05] MEDS: DULOXETINE 30 MG CAP DR PO SCH (08:48)
[2017-07-05] MEDS: GABAPENTIN 300 MG CAP PO SCH ×3 (08:48→21:49)
[2017-07-05] MEDS: AMLODIPINE 10 MG TAB PO SCH (08:48)
[2017-07-05] MEDS: ASPIRIN (EC) 81 MG TAB PO SCH (08:48)
[2017-07-05] MEDS: ENOXAPARIN 40 MG/0.4 ML SYG SC SCH (08:52)
[2017-07-05] MEDS: TRIAMCINOLONE ACET 0.1% 15 GM CR TOP SCH ×3 (09:15→21:49)
[2017-07-05] MEDS: morphine 2 MG INJ IV PRN (09:15)
[2017-07-05] MEDS: morphine 4 MG/ML VIAL IV PRN ×2 (13:30→19:12)
--- NOTE | 2017-07-05 13:41 | PN ---
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 sp surgical repair 8. PLAN cont home meds dispo as per ortho Subjective 24 Hr Interval Summary Free Text/Dictation per Dr Jo patient not ready to go home yet Exam/Review of Systems Vital Signs Vitals Vital Signs Date Time Temp Pulse Resp B/P Pulse Ox O2 Delivery O2 Flow Rate FiO2 07/05/17 08:28 98.0 90 18 142/70 96 07/04/17 21:50 Room Air Intake and Output 07/04/17 07/04/17 07/05/17 15:00 23:00 07:00 Intake Total 1000 ml 1200 ml Output Total 30 ml 1200 ml Balance 970 ml 0 ml Exam nad sitting in chair no mrg lungs clear abd soft no rashes Results Result Diagram: 07/04/17202407/04/17 0816 Results 24 hrs Laboratory Tests Test 07/04/17 20:25 White Blood Count 8.5 # Red Blood Count 4.08 L Hemoglobin 10.9 L Hematocrit 32.8 L Mean Corpuscular Volume 80.4 L Mean Corpuscular Hemoglobin 26.7 L Mean Corpuscular Hemoglobin Concent 33.2 Red Cell Distribution Width 14.4 Platelet Count 254 Mean Platelet Volume 10.1 Neutrophils % 78.5 H Lymphocytes % 13.5 L Monocytes % 6.3 Eosinophils % 1.1 Basophils % 0.2 Nucleated Red Blood Cells % 0.0 Neutrophils # (Manual) 6.7 Lymphocytes # 1.1 Monocytes # 0.5 Eosinophils # 0.1 Basophils # 0.0 Nucleated Red Blood Cells # 0.0 Medications Medications Current Medications Aspirin (Halfprin) 81 mg DAILY PO Last administered on 07/05/17 08:48; Admin Dose 81 MG; Start 07/01/17 at 09:00 Duloxetine HCl (Cymbalta) 60 mg DAILY PO Last administered on 07/05/17 08:48; Admin Dose 60 MG; Start 07/01/17 at 09:00 Gabapentin (Neurontin) 300 mg TID PO Last administered on 07/05/17 13:25; Admin Dose 300 MG; Start 06/30/17 at 21:00 Loratadine (Claritin) 10 mg DAILY PO Last administered on 07/05/17 08:48; Admin Dose 10 MG; Start 07/01/17 at 09:00 Triamcinolone Acetonide (Kenalog 0.1% Cr) 1 applic TID TOP Last administered on 07/05/17 13:25; Admin Dose 1 APPLIC; Start 06/30/17 at 21:00 Pantoprazole (Protonix Tab) 40 mg DAILY@06 PO Last administered on 07/05/17 06 :39; Admin Dose 40 MG; Start 07/01/17 at 06:00 Acetaminophen (Tylenol Tab) 650 mg Q6H PRN PO PAIN LEVEL 1-3 OR FEVER; Start at 18:00 Acetaminophen/ Hydrocodone Bitart ([place] (5/325)) 1 tab Q6H PRN PO MODERATE PAIN LEVEL 4-6 Last administered on 06/30/17 18:55; Admin Dose 1 TAB; Start at 18:00 Morphine Sulfate (morphine) 2 mg Q4H PRN IV SEVERE PAIN LEVEL 7-10 Last administered on 07/05/17 09:15; Admin Dose 2 MG; Start 06/30/17 at 18:00 Docusate Sodium (Colace) 100 mg Q12H PRN PO CONSTIPATION; Start 06/30/17 at 18: 00 Magnesium Hydroxide (Milk Of Mag) 30 ml DAILY PRN PO CONSTIPATION; Start at 18:00 Bisacodyl (Dulcolax) 5 mg DAILY PRN PO CONSTIPATION; Start 06/30/17 at 18:00 Amlodipine Besylate 10 mg 10 mg DAILY PO Last administered on 07/05/17 08:48; Admin Dose 10 MG; Start 06/30/17 at 21:30 Sodium Chloride (NS) 1,000 ml @ 100 mls/hr Q10H IV Last administered on 06:38; Admin Dose 100 MLS/HR; Start 07/04/17 at 19:50 Enoxaparin Sodium (Lovenox) 40 mg DAILY SC Last administered on 07/05/17 08:52 ; Admin Dose 40 MG; Start 07/05/17 at 09:00 Morphine Sulfate (morphine) 3 mg Q3H PRN IV PAIN Last administered on 13:30; Admin Dose 3 MG; Start 07/04/17 at 20:00 Acetaminophen/ Hydrocodone Bitart 1 tab 1 tab Q4H PRN PO PAIN; Start 07/04/17 at 20:00 Cefazolin Sodium (Ancef 1 Gm/50 ml (Pmx)) 50 ml @ 100 mls/hr Q8H IVPB Last administered on 07/05/17 08:47; Admin Dose 100 MLS/HR; Start 07/05/17 at 00:00 ; Stop 07/05/17 at 16:29 LETICIA JAMESON MD Jul 05, 2017 13:41
[2017-07-05 14:00] VITALS: BP 149/73; RESP 18
[2017-07-05] MEDS ORDERED: KETOROLAC 30 MG INJ IV PRN (14:00)
[2017-07-05 19:38] VITALS: BP 106/58; PULSE 74; RESP 18
[2017-07-05 20:06] VITALS: BP 139/69; RESP 20
[2017-07-06] VITALS (26 sets, daily range): BP systolic 122–173; BP diastolic 59–79; PULSE 74–86; RESP 14–21
[2017-07-06] MEDS: morphine 4 MG/ML VIAL IV PRN ×2 (00:03→04:34)
[2017-07-06] MEDS: PANTOPRAZOLE (EC) 40 MG TAB PO SCH (05:27)
[2017-07-06] MEDS: TRIAMCINOLONE ACET 0.1% 15 GM CR TOP SCH ×3 (09:00→20:31)
[2017-07-06] MEDS: ASPIRIN (EC) 81 MG TAB PO SCH (09:00)
[2017-07-06] MEDS: LORATADINE 10 MG TAB PO SCH (09:00)
[2017-07-06] MEDS: DULOXETINE 30 MG CAP DR PO SCH (09:00)
[2017-07-06] MEDS: ENOXAPARIN 40 MG/0.4 ML SYG SC SCH (09:00)
[2017-07-06] MEDS: AMLODIPINE 10 MG TAB PO SCH (09:00)
[2017-07-06] MEDS: GABAPENTIN 300 MG CAP PO SCH ×3 (09:00→20:30)
--- NOTE | 2017-07-06 10:23 | HPN ---
Date/Time of Note Date/Time of Note DATE: 07/06/17 TIME: 10:23 Interval H&P Admission Note Pt. seen H&P reviewed: No system changes PHILL CARTAGENA MD Jul 06, 2017 10:23
[2017-07-06] MEDS ORDERED: HYDROmorphONE (0.2 MG/ML) 10ML SYG IV PRN (10:30)
[2017-07-06] MEDS ORDERED: ONDANSETRON 4 MG INJ IV PRN (10:30)
[2017-07-06] MEDS ORDERED: DIPHENHYDRAMINE 50 MG INJ IV PRN (10:30)
[2017-07-06] MEDS ORDERED: PROCHLORPERAZINE 10 MG INJ IV PRN (10:30)
[2017-07-06] MEDS ORDERED: FENTAnyl 50 MCG/ML VIAL IV PRN (10:30)
[2017-07-06] MEDS ORDERED: MIDAZOLAM 1 MG/ML 2 ML INJ ONE (10:35)
[2017-07-06] MEDS ORDERED: PROPOFOL 20 ML ONE (10:35)
[2017-07-06] MEDS ORDERED: LIDOCAINE 2% (SDV) 5 ML INJ ONE (10:35)
[2017-07-06] MEDS ORDERED: ROPIVACAINE 0.5 % 30 ML VIAL ONE (10:50)
[2017-07-06] MEDS ORDERED: FAMOTIDINE 20 MG INJ ONE (11:12)
[2017-07-06] MEDS ORDERED: DEXAMETHASONE 4 MG/ML 1 ML INJ ONE (11:12)
[2017-07-06] MEDS ORDERED: ONDANSETRON 4 MG INJ ONE (11:12)
[2017-07-06] MEDS ORDERED: FENTAnyl 50 MCG/ML VIAL ONE (11:19)
[2017-07-06] MEDS ORDERED: EPHEDrine SULFATE 50 MG/5 ML SYG ONE (11:45)
[2017-07-06] MEDS ORDERED: CEFAZOLIN 1 GM INJ ONE (11:46)
--- NOTE | 2017-07-06 11:51 | PN ---
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 sp surgical repair . PLAN cont home meds dispo as per ortho Subjective 24 Hr Interval Summary Free Text/Dictation Per family member, pt might be going back to the OR tomorrow Exam/Review of Systems Vital Signs Vitals Vital Signs Date Time Temp Pulse Resp B/P Pulse Ox O2 Delivery O2 Flow Rate FiO2 07/06/17 08:03 98.4 76 20 146/78 90 07/06/17 01:42 Room Air Intake and Output 07/05/17 07/05/17 07/06/17 15:00 23:00 07:00 Intake Total 500 ml 800 ml Output Total 600 ml 1000 ml Balance -100 ml -200 ml Exam nad no mrg lungs clear abd soft no rashes Results Result Diagram: 07/04/17202407/04/1716 Medications Medications Current Medications Aspirin (Halfprin) 81 mg DAILY PO Last administered on 07/05/17 08:48; Admin Dose 81 MG; Start 07/01/17 at 09:00 Duloxetine HCl (Cymbalta) 60 mg DAILY PO Last administered on 07/05/17 08:48; Admin Dose 60 MG; Start 07/01/17 at 09:00 Gabapentin (Neurontin) 300 mg TID PO Last administered on 07/05/17 21:49; Admin Dose 300 MG; Start 06/30/17 at 21:00 Loratadine (Claritin) 10 mg DAILY PO Last administered on 07/05/17 08:48; Admin Dose 10 MG; Start 07/01/17 at 09:00 Triamcinolone Acetonide (Kenalog 0.1% Cr) 1 applic TID TOP Last administered on 07/05/17 21:49; Admin Dose 1 APPLIC; Start 06/30/17 at 21:00 Pantoprazole (Protonix Tab) 40 mg DAILY@06 PO Last administered on 07/05/17 06 :39; Admin Dose 40 MG; Start 07/01/17 at 06:00 Acetaminophen (Tylenol Tab) 650 mg Q6H PRN PO PAIN LEVEL 1-3 OR FEVER; Start at 18:00 Acetaminophen/ Hydrocodone Bitart ([place] (5/325)) 1 tab Q6H PRN PO MODERATE PAIN LEVEL 4-6 Last administered on 06/30/17 18:55; Admin Dose 1 TAB; Start at 18:00 Morphine Sulfate (morphine) 2 mg Q4H PRN IV SEVERE PAIN LEVEL 7-10 Last administered on 07/05/17 09:15; Admin Dose 2 MG; Start 06/30/17 at 18:00 Docusate Sodium (Colace) 100 mg Q12H PRN PO CONSTIPATION; Start 06/30/17 at 18: 00 Magnesium Hydroxide (Milk Of Mag) 30 ml DAILY PRN PO CONSTIPATION; Start at 18:00 Bisacodyl (Dulcolax) 5 mg DAILY PRN PO CONSTIPATION; Start 06/30/17 at 18:00 Amlodipine Besylate (Norvasc) 10 mg DAILY PO Last administered on 07/05/17 08: 48; Admin Dose 10 MG; Start 06/30/17 at 21:30 Enoxaparin Sodium (Lovenox) 40 mg DAILY SC Last administered on 07/05/17 08:52 ; Admin Dose 40 MG; Start 07/05/17 at 09:00 Morphine Sulfate (morphine) 3 mg Q3H PRN IV PAIN Last administered on 04:34; Admin Dose 3 MG; Start 07/04/17 at 20:00 Acetaminophen/ Hydrocodone Bitart ([place] (10/325)) 1 tab Q4H PRN PO PAIN; Start 07/04/17 at 20:00 Ketorolac Tromethamine (Toradol) 30 mg Q6H PRN IV PAIN Last administered on 14:22; Admin Dose 30 MG; Start 07/05/17 at 14:00; Stop 07/08/17 at 13:59 LETICIA JAMESON MD Jul 06, 2017 11:51
[2017-07-06] MEDS: CEFAZOLIN 1 GM/50 ML (PMX) 50 ML IVPB SCH ×2 (12:30→20:30)
[2017-07-06] MEDS ORDERED: HYDROCODONE/APAP (5/325) TAB PO PRN (12:30)
[2017-07-06] MEDS: SOD CHLORIDE 0.9% 1,000 ML IV SCH ×2 (13:00→23:00)
[2017-07-06] MEDS ORDERED: LABETALOL HCL 20MG INJ IV PRN (13:00)
[2017-07-06] MEDS ORDERED: hydrALAzine 20 MG INJ IV PRN (13:00)
--- NOTE | 2017-07-06 13:28 | SIPON ---
Date/Time of Note Date/Time of Note DATE: 07/06/17 TIME: 13:22 Operative Report Preoperative Diagnosis fracture dislocation of lT.elbow with recurrent dislocation Postoperative Diagnosis same as preop Operation/Procedure Performed repeat manipulative reduction and pin fixation lt. elbow Surgeon: PHILL CARTAGENA MD Anesthesia Type: general Estimated Blood Loss: none Transfusion Required: no Specimen: none Grafts/Implants: none Complications: no PHILL CARTAGENA MD Jul 06, 2017 13:28
--- NOTE | 2017-07-06 14:15 | RADRPT ---
PROCEDURE: Intraoperative imaging of the left elbow with fluoroscopy. CLINICAL INDICATION: Left elbow pain. Intraoperative. TECHNIQUE: 9 images of the left elbow were obtained in the operating room with an image intensifie r. No radiologist was in attendance. Fluoroscopy time is 110 seconds. COMPARISON: 07/04/2017. FINDINGS: Images demonstrate a radial head prosthesis in satisfactory position and suture anchors in the media l and lateral distal humerus. There is no dislocation. IMPRESSION: 1. Intraoperative imaging of the left elbow. RPTAT: QQ .Dhaval Dinero MD, MD Date Time Electronically viewed and signed by .Dhaval Dinero MD, on 07/06/2017 14:15 .R/
--- NOTE | 2017-07-06 14:51 | OPR ---
DATE OF OPERATION: 07/06/2017 SURGEON: Bnih Jo MD PREOPERATIVE DIAGNOSES: 1. Fracture dislocation of the left shoulder, status post-open reduction and internal fixation, with repair of the medial collateral and lateral collateral ligament. 2. 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 POSTOPERATIVE DIAGNOSES: 1. Fracture dislocation of the left shoulder, status post-open reduction and internal fixation, with repair of the medial collateral and lateral collateral ligament. 2. 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 OPERATION PERFORMED: Repeat manipulation reduction of the left elbow joint, with stabilization by placing a skeletal K-wire fixation. ANESTHESIA: General anesthesia. OPERATIVE FINDINGS AT SURGERY: Under anesthesia, the patient was placed in supine position and left elbow was exposed. Examination at this time revealed extreme instability with reduction and re-dislocation happening very easily. Because of this finding, there was no question that this patient needed some type of skeletal stabilization in order to prevent recurrent dislocation, which was happening even with the patient in a posterior splint, following the extensive soft tissue repair and the radial head replacement. After further examination, the ideal position to maintain the DIP joint in reduced position was identified, which is supination of the forearm and elbow joint in flexion of about 90 degree with upward push at the tip of the olecranon. With this satisfactory position maintained by monitoring with C-arm, a K-wire was introduced into the proximal portion of the olecranon process, and threaded into the distal portion of the humerus. An additional pin was placed in order to insure the stabilization of the joint was in acceptable to position. After confirming satisfactory alignment of the elbow joint, and after confirming acceptable position of the K-wires, the K-wire was cut and bent and after additional dressings the left upper extremity was re- immobilized in a nice posterior long arm splint. The patient tolerated the entire procedure very well and was sent to the recovery room in good condition. Dictated By: Binh Jo MD /alee/yoly /Document#: [id number] CC: In Kristal Jo MD
[2017-07-07 02:16] VITALS: BP 138/66; RESP 18
[2017-07-07] MEDS: CEFAZOLIN 1 GM/50 ML (PMX) 50 ML IVPB SCH (05:46)
[2017-07-07] MEDS: PANTOPRAZOLE (EC) 40 MG TAB PO SCH (05:47)
[2017-07-07 08:12] VITALS: BP 146/71; RESP 20
[2017-07-07] MEDS: GABAPENTIN 300 MG CAP PO SCH ×3 (09:00→21:00)
[2017-07-07] MEDS: SOD CHLORIDE 0.9% 1,000 ML IV SCH ×2 (09:00→19:00)
[2017-07-07] MEDS: LORATADINE 10 MG TAB PO SCH (09:00)
[2017-07-07] MEDS: ASPIRIN (EC) 81 MG TAB PO SCH (09:00)
[2017-07-07] MEDS: DULOXETINE 30 MG CAP DR PO SCH (09:00)
[2017-07-07] MEDS: TRIAMCINOLONE ACET 0.1% 15 GM CR TOP SCH ×3 (09:00→21:00)
[2017-07-07] MEDS: ENOXAPARIN 40 MG/0.4 ML SYG SC SCH (09:00)
[2017-07-07] MEDS: AMLODIPINE 10 MG TAB PO SCH (09:00)
[2017-07-07 15:46] VITALS: BP 149/74; RESP 20
--- NOTE | 2017-07-07 17:47 | PN ---
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 sp surgical repair 07.04 as well as ORIF of left shoulder on PLAN cont home meds, pain medications dispo as per ortho Continue PT as indicated Problems: Subjective 24 Hr Interval Summary Free Text/Dictation Patient had left shoulder surgery yesterday. No acute events overnight Exam/Review of Systems Vital Signs Vitals Vital Signs Date Time Temp Pulse Resp B/P Pulse Ox O2 Delivery O2 Flow Rate FiO2 07/07/17 15:46 98.2 73 20 149/74 94 07/06/17 15:45 Nasal Cannula 2.0 Intake and Output 07/06/17 07/06/17 07/07/17 15:00 23:00 07:00 Intake Total 500 ml 50 ml 570 ml Output Total 2 ml 800 ml Balance 498 ml 50 ml -230 ml Exam nad, lying in bed no mrg lungs clear abd soft Wrappings and bandages covering both upper extremities, appears neurovascularly intact bilateral Results Result Diagram: 07/04/17202407/04/1716 Medications Medications Current Medications Aspirin (Halfprin) 81 mg DAILY PO Last administered on 07/05/17 08:48; Admin Dose 81 MG; Start 07/01/17 at 09:00 Duloxetine HCl (Cymbalta) 60 mg DAILY PO Last administered on 07/05/17 08:48; Admin Dose 60 MG; Start 07/01/17 at 09:00 Gabapentin (Neurontin) 300 mg TID PO Last administered on 07/06/17 20:30; Admin Dose 300 MG; Start 06/30/17 at 21:00 Loratadine (Claritin) 10 mg DAILY PO Last administered on 07/05/17 08:48; Admin Dose 10 MG; Start 07/01/17 at 09:00 Triamcinolone Acetonide (Kenalog 0.1% Cr) 1 applic TID TOP Last administered on 07/06/17 20:31; Admin Dose 1 APPLIC; Start 06/30/17 at 21:00 Pantoprazole (Protonix Tab) 40 mg DAILY@06 PO Last administered on 07/07/17 05 :47; Admin Dose 40 MG; Start 07/01/17 at 06:00 Acetaminophen (Tylenol Tab) 650 mg Q6H PRN PO PAIN LEVEL 1-3 OR FEVER; Start at 18:00 Acetaminophen/ Hydrocodone Bitart ([place] (5/325)) 1 tab Q6H PRN PO MODERATE PAIN LEVEL 4-6 Last administered on 06/30/17 18:55; Admin Dose 1 TAB; Start at 18:00 Docusate Sodium (Colace) 100 mg Q12H PRN PO CONSTIPATION; Start 06/30/17 at 18: 00 Magnesium Hydroxide (Milk Of Mag) 30 ml DAILY PRN PO CONSTIPATION; Start at 18:00 Bisacodyl (Dulcolax) 5 mg DAILY PRN PO CONSTIPATION; Start 06/30/17 at 18:00 Amlodipine Besylate (Norvasc) 10 mg DAILY PO Last administered on 07/05/17 08: 48; Admin Dose 10 MG; Start 06/30/17 at 21:30 Enoxaparin Sodium (Lovenox) 40 mg DAILY SC Last administered on 07/05/17 08:52 ; Admin Dose 40 MG; Start 07/05/17 at 09:00 Acetaminophen/ Hydrocodone Bitart ([place] (10/325)) 1 tab Q4H PRN PO PAIN; Start 07/04/17 at 20:00 Ketorolac Tromethamine 30 mg 30 mg Q6H PRN IV PAIN Last administered on 14:22; Admin Dose 30 MG; Start 07/05/17 at 14:00; Stop 07/08/17 at 13:59 Sodium Chloride (NS) 1,000 ml @ 100 mls/hr Q10H IV ; Start 07/06/17 at 13:00 Morphine Sulfate (morphine) 3 mg Q3H PRN IV PAIN; Start 07/06/17 at 12:30 Acetaminophen/ Hydrocodone Bitart ([place] (5/325)) 1 tab Q3H PRN PO PAIN; Start 07/06/17 at 12:30 JORDAN WALLER Jul 07, 2017 17:47
[2017-07-07] MEDS: morphine 4 MG/ML VIAL IV PRN (18:25)
[2017-07-07 19:56] VITALS: BP 139/71; RESP 16
[2017-07-08] MEDS: morphine 4 MG/ML VIAL IV PRN ×3 (01:44→19:42)
[2017-07-08 01:50] VITALS: BP 134/70; RESP 16
[2017-07-08] MEDS: SOD CHLORIDE 0.9% 1,000 ML IV SCH ×2 (05:00→12:42)
[2017-07-08] MEDS: PANTOPRAZOLE (EC) 40 MG TAB PO SCH (06:06)
[2017-07-08 07:55] VITALS: BP 152/76; RESP 18
[2017-07-08] MEDS: GABAPENTIN 300 MG CAP PO SCH ×4 (09:00→20:20)
[2017-07-08] MEDS: AMLODIPINE 10 MG TAB PO SCH (09:21)
[2017-07-08] MEDS: ASPIRIN (EC) 81 MG TAB PO SCH (09:21)
[2017-07-08] MEDS: DULOXETINE 30 MG CAP DR PO SCH (09:21)
[2017-07-08] MEDS: LORATADINE 10 MG TAB PO SCH (09:21)
[2017-07-08] MEDS: TRIAMCINOLONE ACET 0.1% 15 GM CR TOP SCH ×3 (09:22→20:20)
[2017-07-08] MEDS: ENOXAPARIN 40 MG/0.4 ML SYG SC SCH (09:24)
[2017-07-08 12:37] VITALS: BP 136/68; RESP 18
--- NOTE | 2017-07-08 14:19 | PN ---
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 sp surgical repair 07.04 as well as ORIF of left shoulder on 07/06 PLAN cont home meds, pain medications dispo as per ortho Continue PT as indicated Problems: Subjective 24 Hr Interval Summary Free Text/Dictation No acute events overnight. Exam/Review of Systems Vital Signs Vitals Vital Signs Date Time Temp Pulse Resp B/P Pulse Ox O2 Delivery O2 Flow Rate FiO2 07/08/17 12:37 98.0 77 18 136/68 92 07/06/17 15:45 Nasal Cannula 2.0 Intake and Output 07/07/17 07/07/17 07/08/17 15:00 23:00 07:00 Intake Total 1320 ml 480 ml Balance 1320 ml 480 ml Exam nad, lying in bed no mrg lungs clear abd soft Wrappings and bandages covering both upper extremities, but appears neurovascularly intact bilateral Results Result Diagram: 07/04/17202407/04/1716 Medications Medications Current Medications Aspirin (Halfprin) 81 mg DAILY PO Last administered on 07/08/17 09:21; Admin Dose 81 MG; Start 07/01/17 at 09:00 Duloxetine HCl (Cymbalta) 60 mg DAILY PO Last administered on 07/08/17 09:21; Admin Dose 60 MG; Start 07/01/17 at 09:00 Gabapentin (Neurontin) 300 mg TID PO Last administered on 07/06/17 20:30; Admin Dose 300 MG; Start 06/30/17 at 21:00 Loratadine (Claritin) 10 mg DAILY PO Last administered on 07/08/17 09:21; Admin Dose 10 MG; Start 07/01/17 at 09:00 Triamcinolone Acetonide (Kenalog 0.1% Cr) 1 applic TID TOP Last administered on 07/08/17 09:22; Admin Dose 1 APPLIC; Start 06/30/17 at 21:00 Pantoprazole (Protonix Tab) 40 mg DAILY@06 PO Last administered on 07/08/17 06 :06; Admin Dose 40 MG; Start 07/01/17 at 06:00 Acetaminophen (Tylenol Tab) 650 mg Q6H PRN PO PAIN LEVEL 1-3 OR FEVER; Start at 18:00 Acetaminophen/ Hydrocodone Bitart ([place] (5/325)) 1 tab Q6H PRN PO MODERATE PAIN LEVEL 4-6 Last administered on 06/30/17 18:55; Admin Dose 1 TAB; Start at 18:00 Docusate Sodium (Colace) 100 mg Q12H PRN PO CONSTIPATION; Start 06/30/17 at 18: 00 Magnesium Hydroxide (Milk Of Mag) 30 ml DAILY PRN PO CONSTIPATION; Start at 18:00 Bisacodyl (Dulcolax) 5 mg DAILY PRN PO CONSTIPATION; Start 06/30/17 at 18:00 Amlodipine Besylate (Norvasc) 10 mg DAILY PO Last administered on 07/08/17 09: 21; Admin Dose 10 MG; Start 06/30/17 at 21:30 Enoxaparin Sodium (Lovenox) 40 mg DAILY SC Last administered on 07/08/17 09:24 ; Admin Dose 40 MG; Start 07/05/17 at 09:00 Acetaminophen/ Hydrocodone Bitart (Ismay (10/325)) 1 tab Q4H PRN PO PAIN; Start 07/04/17 at 20:00 Morphine Sulfate (morphine) 3 mg Q3H PRN IV PAIN Last administered on 09:34; Admin Dose 3 MG; Start 07/06/17 at 12:30 Acetaminophen/ Hydrocodone Bitart (Ismay (5/325)) 1 tab Q3H PRN PO PAIN; Start 07/06/17 at 12:30 JORDAN WALLER Jul 08, 2017 14:19
[2017-07-08 19:39] VITALS: BP 135/75; PULSE 92; RESP 18
[2017-07-09 01:44] VITALS: BP 132/63; RESP 20
[2017-07-09] MEDS: PANTOPRAZOLE (EC) 40 MG TAB PO SCH ×2 (05:18→10:00)
[2017-07-09 05:27] LABS: BASOPHILS % 0.7 % (0.0-2.0); EOSINOPHILS # 0.5 10^3/ul (0.0-0.5); EOSINOPHILS % 12.4 % (0.0-7.0); HEMATOCRIT 30.5 % (37.0-47.0); HEMOGLOBIN 9.9 g/dl (12.0-16.0); LYMPHOCYTES # 1.1 10^3/ul (0.8-2.9); LYMPHOCYTES % 26.4 % (15.0-51.0); MEAN CORPUSCULAR HEMOGLOBIN 26.5 pg (29.0-33.0); MEAN CORPUSCULAR HGB CONC 32.5 g/dl (32.0-37.0); MEAN CORPUSCULAR VOLUME 81.6 fl (82.0-101.0); MEAN PLATELET VOLUME 10.4 fl (7.4-10.4); MONOCYTE # 0.3 10^3/ul (0.3-0.9); MONOCYTES % 7.7 % (0.0-11.0); NEUTROPHILS % 52.6 % (39.0-77.0); PLATELET COUNT 253 10^3/UL (140-415); RED BLOOD COUNT 3.74 10^6/ul (4.20-5.40); RED CELL DISTRIBUTION WIDTH 14.6 % (11.5-14.5)
[2017-07-09 05:57] LABS: CREATININE 0.58 mg/dl (0.44-1.00)
[2017-07-09 07:57] VITALS: BP 178/82; RESP 19
[2017-07-09] MEDS: GABAPENTIN 300 MG CAP PO SCH ×2 (09:00→13:00)
[2017-07-09] MEDS: DULOXETINE 30 MG CAP DR PO SCH (09:00)
[2017-07-09] MEDS: AMLODIPINE 10 MG TAB PO SCH (10:00)
[2017-07-09] MEDS: ENOXAPARIN 40 MG/0.4 ML SYG SC SCH (10:00)
[2017-07-09] MEDS: ASPIRIN (EC) 81 MG TAB PO SCH (10:00)
[2017-07-09] MEDS: TRIAMCINOLONE ACET 0.1% 15 GM CR TOP SCH ×2 (10:00→13:00)
[2017-07-09] MEDS: LORATADINE 10 MG TAB PO SCH (10:00)
[2017-07-09 14:05] VITALS: BP 145/67; RESP 18
--- NOTE | 2017-07-09 14:45 | PDOCDIS ---
Discharge Instructions CONDITION Patient Condition: Stable HOME CARE INSTRUCTIONS: Diet Instructions: Regular ACTIVITY: Activity Restrictions: Slowly Increase Activity Rest between Activity Avoid heavy lifting Do not Drive Avoid Heavy Housework Bathing Restrictions: Sponge Bath FOLLOW UP/APPOINTMENTS Follow-up Plan Please take your medications as prescribed. Please follow-up with your orthopedic surgery doctor in the clinic as well as her primary doctor in the next 3-5 days. JORDAN WALLER Jul 09, 2017 14:45
[2017-07-09] MEDS ORDERED: HYDR-906 PO (14:47)
--- NOTE | 2017-07-09 14:54 | DS ---
Date/Time of Note Date/Time of Note DATE: 07/09/17 TIME: 14:48 Discharge Summary Admission/Discharge Info Admit Date/Time Jun 30, 2017 at 17:30 Discharge Date/Time Discharge Diagnosis 1. Status post fall with left elbow and left shoulder fractures, status post ORIF for both areas. 2. prior dislocation R elbow s/p successful closed reduction 3. Hypertension 4. Anxiety 5. Prior stroke Patient Condition: Stable Hospital Course 67-year-old female who was recently discharged from this facility June 22, 2017 after she had presented following a mechanical fall. She had sustained bilateral dislocation of both elbows, because she supposedly for her outstretched hands, however she also had a fracture in her left elbow. Both dislocations were reduced in the emergency room, but the patient required a trip to the operating room for a closed reduction of her left elbow. She went in to see orthopedic surgeon for this admission, who did an x-ray in his office. noted that her fracture was not healing properly, and so he sent her to the emergency room to be worked up for possible open reduction and internal fixation. So patient was admitted to medical surgical unit, seen by orthopedic surgery team. She underwent Open reduction of the dislocated left elbowjoint, followed by an extensive collateral ligament repair and replacement of the radial head on 07.04 . For her fracture dislocation of the left shoulder , also underwent-open reduction and internal fixation, with repair of the medial collateral and lateral collateral ligament, as well as radial prosthetic replacement of the radial headwith recurrent dislocation and severe instability. on 07/06. Patient tolerated both procedures well, she was able to ambulate, tolerated p.o. diet, vital signs remained stable on the day of discharge, if we get orthopedic surgery clearance today she will be discharged home today in an improved condition. See below for full list of discharge medications. Home Meds Active Scripts Hydrocodone/Acetaminophen ([place] 5-325 Tablet) 1 Each Tablet, 1 EACH PO Q6, #10 TAB Prov:JORDAN WALLER 07/09/17 Tramadol Hcl* (Ultram*) 50 Mg Tablet, 50 MG PO Q6H Y for PAIN, #30 TAB Prov:MARY VIERA NP 06/22/17 Aspirin* (Aspirin* EC) 81 Mg Tabec, 81 MG PO DAILY for 90 Days, TAB Prov:PRATEEK POWELL MD 03/15/16 Reported Medications Triamcinolone Acetonide* (Kenalog*) 0.1%-15GM Cr, 1 APPLIC TOP TID, #1 TUB 06/19/17 Amlodipine Besylate* (Amlodipine Besylate*) 10 Mg Tablet, 10 MG PO DAILY, #30 TAB 06/19/17 Clonidine Hcl* (Clonidine Hcl*) 0.1 Mg Tab, 0.1 MG PO DAILY Y for ELEVATED BLOOD PRESSURE, TAB 06/19/17 Escitalopram Oxalate* (Lexapro*) 10 Mg Tablet, 10 MG PO DAILY, #30 TAB 06/19/17 Loratadine* (Loratadine*) 10 Mg Tablet, 10 MG PO DAILY, #30 TAB 06/19/17 Esomeprazole Mag Trihydrate (Nexium) 40 Mg Capsule.dr, 40 MG PO DAILY, #30 CAP 06/19/17 Duloxetine Hcl* (Duloxetine Hcl*) 60 Mg Capsule.dr, 60 MG PO DAILY, #30 CAP 06/19/17 Gabapentin* (Gabapentin*) 300 Mg Capsule, 300 MG PO TID, #90 CAP 03/13/16 Primary Care Provider Kami Esposito Time spent on discharge: > 30 minutes Pending Labs Laboratory Tests Test 07/09/17 04:37 White Blood Count 4.010^3/ul (4.8-10.8) Red Blood Count 3.7410^6/ul (4.20-5.40) Hemoglobin 9.9g/dl (12.0-16.0) Hematocrit 30.5% (37.0-47.0) Mean Corpuscular Volume 81.6fl (82.0-101.0) Mean Corpuscular Hemoglobin 26.5pg (29.0-33.0) Mean Corpuscular Hemoglobin Concent 32.5g/dl (32.0-37.0) Red Cell Distribution Width 14.6% (11.5-14.5) Platelet Count 62401^3/UL (140-415) Mean Platelet Volume 10.4fl (7.4-10.4) Neutrophils % 52.6% (39.0-77.0) Lymphocytes % 26.4% (15.0-51.0) Monocytes % 7.7% (0.0-11.0) Eosinophils % 12.4% (0.0-7.0) Basophils % 0.7% (0.0-2.0) Nucleated Red Blood Cells % 0.0/100WBC (0.0-0.0) Neutrophils # (Manual) 2.110^3/ul (1.7-7.5) Lymphocytes # 1.110^3/ul (0.8-2.9) Monocytes # 0.310^3/ul (0.3-0.9) Eosinophils # 0.510^3/ul (0.0-0.5) Basophils # 0.010^3/ul (0.0-0.1) Nucleated Red Blood Cells # 0.010^3/ul (0.0-0.0) Blood Urea Nitrogen 12mg/dl (7-20) Creatinine 0.58mg/dl (0.44-1.00) JORDAN WALLER Jul 09, 2017 14:54
== END 2017-07-09 19:26 | disposition home or self-care (01) | DRG 483 ==
LOC: E/R 14:01 → MS1 17:30
PROVIDERS: ADMIT Internal Medicine; ATTEND Internal Medicine
PROC: 0RRM0JZ Replacement of Left Elbow Joint with Synthetic Substitute, Open Approach (ICD-10-PCS; principal; 2017-07-04 15:00)
PROC: 0PSG34Z Reposition Left Humeral Shaft with Internal Fixation Device, Percutaneous Approach (ICD-10-PCS; 2017-07-06)
DX: S52.122 Displaced fracture of head of left radius (principal); I10 Essential (primary) hypertension; T84.028A Dislocation of other internal joint prosthesis, initial encounter; Z91.81 History of falling; Z98.84 Bariatric surgery status; F41.9 Anxiety disorder, unspecified; Z86.73 Personal history of transient ischemic attack (TIA), and cerebral infarction without residual deficits; S53.22XD Traumatic rupture of left radial collateral ligament, subsequent encounter; S53.49 Other sprain of elbow; Z96.622 Presence of left artificial elbow joint
CPT/HCPCS: 73070; 73200; 73221; 80048; 80053; 82565; 84520; 85025; 85610; 88304; 88311; C1713; J0360; J0690; J1100; J1650; J1885; J2250; J2270; J2370; J2405; J2765; J2795; J3010; J7030